=== PATIENT | female | born 1950 | race Caucasian/White ===

== ENCOUNTER 2016-07-01 14:57 | Emergency (ER) | payer OTHER ==
[2016-07-01 15:04] VITALS: BMI 23.3
--- NOTE | 2016-07-01 15:20 | PDOC ---
[id number] is a 66 year old female, with a significant past medical history of coma and trach tube s/p right lower extremity bacterial infection with hospitalization for 4 months (2010), who presents to the emergency department with chest pain since . She states her pain is localized her mid- sternal region and is notably increased after eating. The patient reports the severity of her pain has decreased about 50% since the initial onset 4 days ago , however, the pain has been constant. The patient states she has not had to take any daily medications recently since her hospitalization in 2010. She denies shortness of breath, headache and dizziness. She denies fever, chills , nausea, vomit, diarrhea and constipation. She denies dysuria, frequency, urgency and hematuria. Allergies: NKDA Social history: denies toxic habits <Darby Wiley - Last Filed: 07/01/16 15:52> <Jarrett Mcgee - Last Filed: 08/11/16 09:48> - General Chief Complaint: Chest Pain Stated Complaint: CHEST PAIN Time Seen by Provider: 07/01/16 15:20 Past History <Darby Wiley - Last Filed: 07/01/16 15:52> - Psycho/Social/Smoking Cessation Hx Anxiety: No Suicidal Ideation: No Smoking History: Never smoked Have you smoked in the past 12 months: No Information on smoking cessation initiated: No Hx Alcohol Use: No Drug/Substance Use Hx: No Substance Use Type: None <Jarrett Mcgee - Last Filed: 08/11/16 09:48> - Past Medical History Allergies/Adverse Reactions: Allergies Allergy/AdvReac Type Severity Reaction Status Date / Time egg Allergy Verified 07/01/16 14:59 garlic Allergy Verified 07/01/16 14:59 Home Medications: Ambulatory Orders Ibuprofen 600 mg PO QID PRN #30 tablet 07/01/16 Ranitidine HCl [Zantac] 150 mg PO DAILY #20 tablet 07/01/16 Review of Systems - Review of Systems Able to Perform ROS?: Yes Comments:: 07/01/16 15:53 GENERAL/CONSTITUTIONAL: No fever or chills. No weakness. HEAD, EYES, EARS, NOSE AND THROAT: No change in vision. No ear pain or discharge. No sore throat. CARDIOVASCULAR: (+) chest pain. No shortness of breath. RESPIRATORY: No cough, wheezing, or hemoptysis. GASTROINTESTINAL: No nausea, vomiting, diarrhea or constipation. GENITOURINARY: No dysuria, frequency, or change in urination. MUSCULOSKELETAL: No joint or muscle swelling or pain. No neck or back pain. SKIN: No rash NEUROLOGIC: No headache, vertigo, loss of consciousness, or change in strength/ sensation. ENDOCRINE: No increased thirst. No abnormal weight change. HEMATOLOGIC/LYMPHATIC: No anemia, easy bleeding, or history of blood clots. ALLERGIC/IMMUNOLOGIC: No hives or skin allergy. <Darby Wiley - Last Filed: 07/01/16 15:52> *Physical Exam - Vital Signs Last Vital Signs Temp Pulse Resp BP Pulse Ox 97 F L 102 H 20 130/69 98 07/01/16 15:00 07/01/16 15:00 07/01/16 15:00 07/01/16 15:00 07/01/16 15:00 - Physical Exam Comments: 07/01/16 15:53 GENERAL: Awake, alert, and fully oriented, in no acute distress HEAD: No signs of trauma EYES: PERRLA, EOMI, sclera anicteric, conjunctiva clear ENT: Auricles normal inspection, hearing grossly normal, nares patent, oropharynx clear without exudates. Moist mucosa NECK: Normal ROM, supple, no lymphadenopathy, JVD, or masses LUNGS: Breath sounds equal, clear to auscultation bilaterally. No wheezes, and no crackles HEART: Regular rate and rhythm, normal S1 and S2, no murmurs, rubs or gallops ABDOMEN: Soft, nontender, normoactive bowel sounds. No guarding, no rebound. No masses EXTREMITIES: (+) RLE has skin graft well healed, wearing brace. Normal range of motion, no edema. No clubbing or cyanosis. No cords, erythema, or tenderness NEUROLOGICAL: Cranial nerves II through XII grossly intact. Normal speech, normal gait SKIN: Warm, Dry, normal turgor, no rashes or lesions noted. <Darby Wiley - Last Filed: 07/01/16 15:52> - Vital Signs Last Vital Signs Temp Pulse Resp BP Pulse Ox 97 F L 102 H 20 130/69 98 07/01/16 15:00 07/01/16 15:00 07/01/16 15:00 07/01/16 15:00 07/01/16 15:00 <Jarrett Mcgee - Last Filed: 08/11/16 09:48> ED Treatment Course - LABORATORY CBC & Chemistry Diagram: 07/01/16 15:48 07/01/16 15:48 <Jarrett Mcgee - Last Filed: 08/11/16 09:48> *DC/Admit/Observation/Transfer - Attestations Scribe Attestion: 07/01/16 15:54 Documentation prepared by Darby Wiley, acting as medical instructor for Jarrett Mcgee MD <Darby Wiley - Last Filed: 07/01/16 15:52> - Attestations Physician Attestion: 07/01/16 15:20 I, Dr. Jarrett Mcgee, attest that this document has been prepared under my direction and personally reviewed by me in its entirety. I further attest, that it accurately reflects all work, treatment, procedures and medical decision -making performed by me. <Jarrett Mcgee - Last Filed: 08/11/16 09:48> Diagnosis at time of Disposition: Pleuritic chest pain - Discharge Dispostion Disposition: HOME - Prescriptions Prescriptions: Ibuprofen 600 mg PO QID PRN #30 tablet PRN Reason: Pain Ranitidine HCl [Zantac] 150 mg PO DAILY #20 tablet - Patient Instructions Additional Instructions: The symptoms described are suggestive of a chest wall type of pain; if your symptoms worsen or change, please return immediately to the ED. You have very low risk for cardiovascular disease and the symptoms are not suggestive of a cardiac origin. Please follow up with the PMD within the next 48 hours. A sustainability engineer (stomach doctor) evaluation as an out patient would be appropriate follow up as well.
[2016-07-01] MEDS ORDERED: LIDOCAINE VISCOUS 2% ORAL/TOP 20 ML UNIT-DOSE CUP MM ONE (15:34)
[2016-07-01] MEDS ORDERED: diphenhydrAMINE HCL 12.5 MG/5 ML UNIT-DOSE CUPS PO ONE (15:34)
[2016-07-01] MEDS ORDERED: MAG HYDROX/AL HYDROX/SIMETH 30 ML UNIT-DOSE CUP PO ONE (15:34)
[2016-07-01] MEDS ORDERED: MAG HYDROX/AL HYDROX/SIMETH 30 ML UNIT-DOSE CUP ONE (15:52)
[2016-07-01] MEDS ORDERED: diphenhydrAMINE HCL 12.5 MG/5 ML BULK BOTTLE ONE (15:52)
[2016-07-01 16:09] LABS: BASOPHIL 0.4 % (0-2.0); EOSINOPHIL 1.7 % (0-4.5); MCH 28.7 pg (25.7-33.7); MCHC 32.7 g/dl (32.0-36.0); MEAN CELL VOLUME 87.8 fl (80-96); MEAN PLT VOLUME 8.9 fl (7.5-11.1); NEUTROPHILS 83.9 % (42.8-82.8); PLATELET COUNT 261 K/MM3 (134-434); RDW 13.5 % (11.6-15.6); WHITE BLOOD COUNT 9.7 K/mm3 (4.0-10.0)
[2016-07-01 16:29] LABS: INR 1.06 (0.82-1.09); PROTHROMBIN TIME (PATIENT) 11.7 SEC (9.98-11.88)
[2016-07-01 16:30] LABS: ALBUMIN 3.8 g/dl (3.4-5.0); ANION GAP 12 (8-16); BILIRUBIN,TOTAL 0.4 mg/dL (0.2-1.0); CALCIUM 9.8 mg/dL (8.5-10.1); CO2 26 mmol/L (21-32); CREATININE 0.9 mg/dL (0.55-1.02); GLUCOSE,RANDOM 96 mg/dL (74-106); SGOT/AST 18 U/L (15-37); SGPT/ALT 22 U/L (12-78); TOT PROT 8.5 g/dl (6.4-8.2)
[2016-07-01 16:33] LABS: ALK PHOS 103 U/L (45-117); TROPONIN I < 0.02 ng/ml (0.00-0.05)
[2016-07-01] MEDS ORDERED: PANTOPRAZOLE 40 MG TABLET (FP) PO ONE (17:38)
[2016-07-01] MEDS ORDERED: FAMOTIDINE 20 MG/50 ML IVPB 50 ML IVPB ONE ×2 (17:38→17:52)
[2016-07-01] MEDS ORDERED: PANTOPRAZOLE 40 MG TABLET (FP) ONE (17:51)
--- NOTE | 2016-07-01 21:50 | PDOC ---
*Physical Exam - Vital Signs Last Vital Signs Temp Pulse Resp BP Pulse Ox 97 F L 97 H 20 117/78 97 07/01/16 15:00 07/01/16 18:55 07/01/16 21:20 07/01/16 18:55 07/01/16 21:20 ED Treatment Course - LABORATORY CBC & Chemistry Diagram: 07/01/16 15:48 07/01/16 15:48 - ADDITIONAL ORDERS Additional order review: Laboratory Results 07/01/16 07/01/16 15:48 15:48 INR 1.06 Sodium 140 Potassium 4.1 Chloride 102 Carbon Dioxide 26 Anion Gap 12 BUN 19 H Creatinine 0.9 Creat Clearance w eGFR > 60 Random Glucose 96 Calcium 9.8 Total Bilirubin 0.4 AST 18 ALT 22 Alkaline Phosphatase 103 Creatine Kinase 95 Troponin I < 0.02 Total Protein 8.5 H Albumin 3.8 Lipase 186 07/01/16 15:48 RBC 4.73 MCV 87.8 MCHC 32.7 RDW 13.5 MPV 8.9 Neutrophils % 83.9 H Lymphocytes % 7.2 L Monocytes % 6.8 Eosinophils % 1.7 Basophils % 0.4 - Medications Given in the ED: ED Medications Discontinued Medications Generic Name Dose Route Start Last Admin Trade Name Freq PRN Reason Stop Dose Admin Al Hydroxide/Mg Hydroxide 30 ml 07/01/16 15:34 07/01/16 16:10 Mylanta Oral Suspension - PO 07/01/16 15:35 30 ml ONCE ONE Administration Diphenhydramine HCl 25 mg 07/01/16 15:34 07/01/16 16:10 Benadryl Oral Solution - PO 07/01/16 15:35 25 mg ONCE ONE Administration Famotidine/Sodium Chloride 50 mls @ 100 mls/hr 07/01/16 17:38 07/01/16 18:01 Pepcid 20 Mg Premixed Ivpb - IVPB 07/01/16 18:07 100 mls/hr ONCE ONE Administration Lidocaine HCl 60 ml 07/01/16 15:34 07/01/16 16:10 Xylocaine 2% Viscous Oral - MM 07/01/16 15:35 60 ml ONCE ONE Administration Pantoprazole Sodium 40 mg 07/01/16 17:38 07/01/16 18:01 Protonix - PO 07/01/16 17:39 40 mg ONCE ONE Administration Medical Decision Making - Medical Decision Making 07/01/16 21:50 The patient is received on sign out; she has no current symptoms; reports no cardiac risk factors aside from borderline hyperlipidemia. She describes a pleuritic type chest pain and reports no risk factors for DVT/PE and has a negative evaluation overall. She is encouraged to follow up with the PMD within the next 48 hours and return if there is any change otherwise; She is given analgesia and antacid zantac for possible involvement of GERD as well. *DC/Admit/Observation/Transfer Diagnosis at time of Disposition: Pleuritic chest pain - Discharge Dispostion Disposition: HOME Condition at time of disposition: Good Admit: No Decision to Admit order Date/Time: 07/01/16 21:44 - Prescriptions Prescriptions: Ibuprofen 600 mg PO QID PRN #30 tablet PRN Reason: Pain Ranitidine HCl [Zantac] 150 mg PO DAILY #20 tablet - Patient Instructions Additional Instructions: The symptoms described are suggestive of a chest wall type of pain; if your symptoms worsen or change, please return immediately to the ED. You have very low risk for cardiovascular disease and the symptoms are not suggestive of a cardiac origin. Please follow up with the PMD within the next 48 hours. A high density talc coater operator (stomach doctor) evaluation as an out patient would be appropriate follow up as well.
--- NOTE | 2016-07-01 21:55 | PDOC ---
History of Present Illness - General Chief Complaint: Chest Pain Stated Complaint: CHEST PAIN Time Seen by Provider: 07/01/16 15:20 Past History - Past Medical History Allergies/Adverse Reactions: Allergies Allergy/AdvReac Type Severity Reaction Status Date / Time egg Allergy Verified 07/01/16 14:59 garlic Allergy Verified 07/01/16 14:59 Home Medications: Ambulatory Orders Ibuprofen 600 mg PO QID PRN #30 tablet 07/01/16 Ranitidine HCl [Zantac] 150 mg PO DAILY #20 tablet 07/01/16 - Psycho/Social/Smoking Cessation Hx Anxiety: No Suicidal Ideation: No Smoking History: Never smoked Have you smoked in the past 12 months: No Information on smoking cessation initiated: No Hx Alcohol Use: No Drug/Substance Use Hx: No Substance Use Type: None *Physical Exam - Vital Signs Last Vital Signs Temp Pulse Resp BP Pulse Ox 97 F L 97 H 20 117/78 97 07/01/16 15:00 07/01/16 18:55 07/01/16 21:20 07/01/16 18:55 07/01/16 21:20 ED Treatment Course - LABORATORY CBC & Chemistry Diagram: 07/01/16 15:48 07/01/16 15:48 - ADDITIONAL ORDERS Additional order review: Laboratory Results 07/01/16 07/01/16 15:48 15:48 INR 1.06 Sodium 140 Potassium 4.1 Chloride 102 Carbon Dioxide 26 Anion Gap 12 BUN 19 H Creatinine 0.9 Creat Clearance w eGFR > 60 Random Glucose 96 Calcium 9.8 Total Bilirubin 0.4 AST 18 ALT 22 Alkaline Phosphatase 103 Creatine Kinase 95 Troponin I < 0.02 Total Protein 8.5 H Albumin 3.8 Lipase 186 07/01/16 15:48 RBC 4.73 MCV 87.8 MCHC 32.7 RDW 13.5 MPV 8.9 Neutrophils % 83.9 H Lymphocytes % 7.2 L Monocytes % 6.8 Eosinophils % 1.7 Basophils % 0.4 - Medications Given in the ED: ED Medications Discontinued Medications Generic Name Dose Route Start Last Admin Trade Name Freq PRN Reason Stop Dose Admin Al Hydroxide/Mg Hydroxide 30 ml 07/01/16 15:34 07/01/16 16:10 Mylanta Oral Suspension - PO 07/01/16 15:35 30 ml ONCE ONE Administration Diphenhydramine HCl 25 mg 07/01/16 15:34 07/01/16 16:10 Benadryl Oral Solution - PO 07/01/16 15:35 25 mg ONCE ONE Administration Famotidine/Sodium Chloride 50 mls @ 100 mls/hr 07/01/16 17:38 07/01/16 18:01 Pepcid 20 Mg Premixed Ivpb - IVPB 07/01/16 18:07 100 mls/hr ONCE ONE Administration Lidocaine HCl 60 ml 07/01/16 15:34 07/01/16 16:10 Xylocaine 2% Viscous Oral - MM 07/01/16 15:35 60 ml ONCE ONE Administration Pantoprazole Sodium 40 mg 07/01/16 17:38 07/01/16 18:01 Protonix - PO 07/01/16 17:39 40 mg ONCE ONE Administration *DC/Admit/Observation/Transfer Diagnosis at time of Disposition: Pleuritic chest pain - Prescriptions Prescriptions: Ibuprofen 600 mg PO QID PRN #30 tablet PRN Reason: Pain Ranitidine HCl [Zantac] 150 mg PO DAILY #20 tablet - Patient Instructions Additional Instructions: The symptoms described are suggestive of a chest wall type of pain; if your symptoms worsen or change, please return immediately to the ED. You have very low risk for cardiovascular disease and the symptoms are not suggestive of a cardiac origin. Please follow up with the PMD within the next 48 hours. A charge operator (stomach doctor) evaluation as an out patient would be appropriate follow up as well.
[2016-07-01 21:58] VITALS: BP 124/80; PULSE 90; TEMP 98.2
--- NOTE | 2016-07-02 13:34 | EKG ---
Test Reason : Blood Pressure : / mmHG Vent. Rate : 093 BPM Atrial Rate : 093 BPM P-R Int : 132 ms QRS Dur : 076 ms QT Int : 324 ms P-R-T Axes : 050 037 066 degrees QTc Int : 402 ms NORMAL SINUS RHYTHM NORMAL ECG NO PREVIOUS ECGS AVAILABLE Confirmed by DAVIS MEJÍA MD ([id number]) on 07/02/2016 1:33:42 PM Referred By: Confirmed By:DAVIS MEJÍA MD
== END 2016-07-01 21:58 | disposition home or self-care (01) ==
LOC: JER 14:57
PROC: 3E033GC Introduction of Other Therapeutic Substance into Peripheral Vein, Percutaneous Approach (ICD-10-PCS; principal; 2016-07-01)
DX: R07.89 Other chest pain (principal)
CPT/HCPCS: 36415; 71010-TC; 71275-TC; 80053; 82550; 83690; 84484; 85025; 85610; 93005; 93010; 96365; 99285-25

== ENCOUNTER 2017-05-04 11:52 | Emergency (ER) | payer OTHER ==
[2017-05-04 12:08] VITALS: BMI 25.0
[2017-05-04] MEDS ORDERED: ALBUTEROL SO4 2.5/IPRATROPIUM 0.5 INH SOL 3 ML VIAL.NEB. NEB ONE (12:32)
--- NOTE | 2017-05-04 12:32 | PDOC ---
History of Present Illness - General Chief Complaint: Pain Stated Complaint: ABD PAIN Time Seen by Provider: 05/04/17 12:08 - History of Present Illness Initial Comments: 66 year old previous healthy female presenting with vesicular rash across her back and stomach. States that she had pain that started in the same location across her back and stomach 5 days prior which evolved into a group of blisters just 2 days prior. States that the rash is burning, non-pruritic, and some of the blisters have popped already. She does have an 8 month old daughter at home and some grandchildren. She has had chicken pox in the past. Denies any fevers, chills, nausea, vomiting, diarrhea, constipation, visual symptoms, chest pain, urinary symptoms, auditory symptoms, ear pain, or other sick signs. 05/04/17 13:13 Past History - Past Medical History Allergies/Adverse Reactions: Allergies Allergy/AdvReac Type Severity Reaction Status Date / Time egg Allergy Verified 05/04/17 12:07 garlic Allergy Verified 05/04/17 12:07 Home Medications: Ambulatory Orders Valacyclovir HCl [Valtrex -] 1,000 mg PO TID 7 Days #20 tablet 05/04/17 COPD: No - Suicide/Smoking/Psychosocial Hx Smoking History: Never smoked Have you smoked in the past 12 months: No Hx Alcohol Use: No Drug/Substance Use Hx: No Substance Use Type: None Review of Systems - Review of Systems Constitutional: No: Chills, Diaphoresis, Fever, Loss of Appetite HEENTM: No: Eye Pain, Blurred Vision Respiratory: No: Cough, Orthopnea, Shortness of Breath, Stridor, Wheezing Cardiac (ROS): No: Chest Pain, Edema, Irregular Heart Rate, Chest Tightness ABD/GI: No: Abdominal Distended, Constipated, Diarrhea, Nausea, Vomiting : No: Burning, Dysuria, Discharge Musculoskeletal: No: Back Pain Integumentary: Yes: Erythema, Lesions, Rash, Other (Painful rash) Neurological: No: Headache, Numbness, Paresthesia, Tingling, Tremors *Physical Exam - Vital Signs Last Vital Signs Temp Pulse Resp BP Pulse Ox 98 F 93 H 18 113/82 113 H 05/04/17 12:05/04/17 12:05/04/17 12:05/04/17 12:05/04/17 12:01 - Physical Exam General Appearance: Yes: Nourished, Appropriately Dressed. No: Apparent Distress HEENT: positive: EOMI, REUBEN, Normal ENT Inspection, TMs Normal, Pharynx Normal. negative: Normal Voice Neck: positive: Trachea midline, Normal Thyroid, Supple. negative: Tender, Rigid Respiratory/Chest: positive: Lungs Clear, Normal Breath Sounds. negative: Chest Tender, Respiratory Distress, Accessory Muscle Use Cardiovascular: positive: Regular Rhythm, Regular Rate Gastrointestinal/Abdominal: positive: Normal Bowel Sounds, Flat, Soft. negative : Tender Musculoskeletal: positive: Normal Inspection, CVA Tenderness Extremity: positive: Normal Capillary Refill, Normal Inspection, Normal Range of Motion. negative: Tender Integumentary: positive: Dry, Warm, Erythema, Rash (T 8 distribution vesicular rash in the T7 disribution with some light crusting. Does not appear to be superinfected.). negative: Normal Color Medical Decision Making - Medical Decision Making Previously healthy 66 year old female with T7 distribution rash concerning for shingles. Will give one dose of Valacyclovir here and send home with prescription for one week treatment and home percocet x 5. Gave instructions to avoid contact with daughter until rash is resolved and anyone who has not had the chicken pox. 05/04/17 13:18 *DC/Admit/Observation/Transfer Diagnosis at time of Disposition: Varicella zoster - Discharge Dispostion Disposition: HOME Condition at time of disposition: Improved Admit: No - Prescriptions Prescriptions: Valacyclovir HCl [Valtrex -] 1,000 mg PO TID 7 Days #20 tablet - Referrals - Patient Instructions Printed Discharge Instructions: DI for Shingles Additional Instructions: You have herpes zoster/ varicella zoster. This is a reactivation of the shingles virus. Please take your medication as directed. You can take some of the pain medication maximum 2 times per day as needed for the pain. Your rash and pain will get better with the antiviral therapy. Please stay away from your daughter until your rash is completely gone. Please stay away from anyone who has not had the chicken pox virus which may be your grandchildren. Please return to the ED if your symptoms do not get better with the medication or your pain does not improve with the pain medications. Print Language: CAP[place] - Post Discharge Activity
[2017-05-04] MEDS ORDERED: valACYclovir HCL 1000 MG TABLET PO ONE (13:07)
--- NOTE | 2017-05-04 13:31 | PDOC ---
Attending Attestation - Resident Resident Name: Kishan Cornejo - ED Attending Attestation I have performed the following: I have examined & evaluated the patient, The case was reviewed & discussed with the resident, I agree w/resident's findings & plan, Exceptions are as noted - HPI HPI: 05/04/17 13:27 66 F with no PMH presents to ER with 5 days of rash and pain. Pt states that she began to feel hypersensitivity and pain in the skin under her R breast 5 days ago. Then, 2 days ago she started to notice a redness in the skin. This progressed to several vesicles and severe pain. Pt denies F/C. Denies rash anywhere else in her body. States that she had chicken pox as a child. - Physicial Exam PE: 05/04/17 13:30 "GENERAL: Awake, alert, and fully oriented, in no acute distress HEAD: No signs of trauma EYES: PERRLA, EOMI, sclera anicteric, conjunctiva clear ENT: Auricles normal inspection, hearing grossly normal, nares patent, oropharynx clear without exudates. Moist mucosa NECK: Nontender, no stepoffs, Normal ROM, supple, no lymphadenopathy, JVD, or masses LUNGS: Breath sounds equal, clear to auscultation bilaterally. No wheezes, and no crackles HEART: Regular rate and rhythm, normal S1 and S2, no murmurs, rubs or gallops ABDOMEN: Soft, nontender, normoactive bowel sounds. No guarding, no rebound. No masses EXTREMITIES: Normal range of motion, no edema. No clubbing or cyanosis. No cords, erythema, or tenderness NEUROLOGICAL: Cranial nerves II through XII intact. 5/5 strength and sensation in all extremities, Normal speech, normal gait SKIN: erythematous rash with crusting vesicles in T5 distribution, no purulent drainage, no fluctuance - Medical Decision Making 05/04/17 13:31 66 F with shingles rash. No evidence of disseminated zoster or superinfection. No systemic symptoms. - Valacyclovir - Isolation precautions I discussed the physical exam findings, ancillary test results and final diagnoses with the patient. I answered all of the patient's questions. The patient was satisfied with the care received and felt comfortable with the discharge plan and treatment plan. The patient agrees to follow up with the primary care physician within 24-72 hours.
[2017-05-04 14:08] VITALS: BP 116/73; PULSE 89; TEMP 98.3
== END 2017-05-04 14:08 | disposition home or self-care (01) ==
LOC: JER 11:52
DX: B01.9 Varicella without complication (principal)
CPT/HCPCS: 99282-25

== ENCOUNTER 2017-08-15 20:02 | Emergency (ER) | payer OTHER ==
[2017-08-15] MEDS ORDERED: SODIUM CHLORIDE 1,000 ML IV STA (20:33)
--- NOTE | 2017-08-15 20:33 | PDOC ---
Rapid Medical Evaluation Time Seen by Provider: 08/15/17 20:29 Medical Evaluation: Allergies Allergy/AdvReac Type Severity Reaction Status Date / Time egg Allergy Verified 05/04/17 12:07 garlic Allergy Verified 05/04/17 12:07 08/15/17 20:29 I have performed a brief-in person evaluation of this patient. The patient presents with a chief complaint of: Left sided back pains since 1300 -1900hrs with Nausea/chills/weak H/O renal colic (last episode x8 years ago) H/O Low B/P and Tachycardia Pertinent physical exam findings: Left flank pain on percussion I have ordered the following: CBC/diff/cmp/IV done by me in triage The patient will proceed to the ED for further evaluation. Discharge Disposition - Diagnosis Kidney stones, Hydronephrosis - Discharge Dispostion Disposition: HOME Condition at time of disposition: Stable - Prescriptions Prescriptions: Cefuroxime Axetil [Ceftin -] 500 mg PO Q12H #20 tablet - Referrals Referrals: Althea Patterson MD [Staff Physician] - - Patient Instructions Printed Discharge Instructions: Kidney Stones -- Adult - Post Discharge Activity
[2017-08-15 20:34] VITALS: BP 119/63; PULSE 108; TEMP 98; BMI 25.7
[2017-08-15 20:46] LABS: BASO % 0.2 % (0-2.0); EOS % 1.7 % (0-4.5); HEMATOCRIT 42.2 % (32.4-45.2); HEMOGLOBIN 14.4 GM/dL (10.7-15.3); LYMPH % 2.6 % (8-40); MCH 30.9 pg (25.7-33.7); MCHC 34.1 g/dl (32.0-36.0); MEAN CELL VOLUME 90.4 fl (80-96); MEAN PLT VOLUME 8.6 fl (7.5-11.1); MONO % 1.3 % (3.8-10.2); NEUT % 94.2 % (42.8-82.8); PLATELET COUNT 172 K/MM3 (134-434); RBC 4.67 M/mm3 (3.60-5.2); RDW 13.5 % (11.6-15.6)
[2017-08-15 20:59] LABS: URINE APPEARANCE SLCLOUDY; URINE BILIRUBIN NEGATIVE (<2.0 mg/dL); URINE COLOR YELLOW; URINE GLUCOSE (UA) NEGATIVE (NEGATIVE); URINE KETONE NEGATIVE (NEGATIVE); URINE NITRITE NEGATIVE (NEGATIVE); URINE PROTEIN NEGATIVE (NEGATIVE); URINE UROBILINOGEN NEGATIVE mg/dL (0.2-1.0)
[2017-08-15 21:00] LABS: URINE LEUK ESTERASE 3+ (NEGATIVE)
[2017-08-15 21:11] LABS: ALK PHOS 102 U/L (45-117); ANION GAP 13 (8-16); BILIRUBIN,TOTAL 0.9 mg/dL (0.2-1.0); BLOOD UREA NITROGEN 16 mg/dL (7-18); CALCIUM 9.9 mg/dL (8.5-10.1); CHLORIDE 106 mmol/L (98-107); CO2 23 mmol/L (21-32); CREATININE 1.1 mg/dL (0.55-1.02); GLUCOSE,RANDOM 92 mg/dL (74-106); SGPT/ALT 29 U/L (12-78); SODIUM 142 mmol/L (136-145); TOT PROT 7.7 g/dl (6.4-8.2)
[2017-08-15 21:14] LABS: POTASSIUM 4.7 mmol/L (3.5-5.1)
[2017-08-15 21:15] LABS: SGOT/AST 38 U/L (15-37)
[2017-08-15 21:34] LABS: EPI CELLS RARE /HPF (FEW); URINE BACTERIA FEW /hpf (NONE SEEN); URINE MUCUS RARE
[2017-08-15] MEDS ORDERED: CEFTRIAXONE 1,000 MG in DEXTROSE 5%-WATER - 50 ML IVPB ONE (23:17)
[2017-08-16] MEDS ORDERED: CEFTRIAXONE 1 GM/50 ML BAG ONE (00:01)
--- NOTE | 2017-08-16 01:37 | PDOC ---
History of Present Illness - General History Source: Patient Exam Limitations: No Limitations - History of Present Illness Initial Comments: 08/16/17 03:28 Patient is a 67 year old female with a significant past medical history of kidney stones who presents to the ED with complaints of left sided flank pain that began earlier today. Patient reports being prescribed antibiotics due to UTI 2 weeks ago, stating she recently just finished the cycle. She reports experiencing gradually increases left flank pain, prompting her to come into the ED for further evaluation. Denies chest pain, Sob. Denies nausea, vomiting. Denies fevers, chills. Denies contact with sick individuals, out of state travelling. Denies trauma to affected area. Denies any other symptoms. Allergies: Egg, Garlic Social History: Lives with . No smoking. No alcohol. No illicit drugs. Surgical History: None PMD: none <Coy Carr - Last Filed: 08/16/17 03:28> <Fidelia Ryan - Last Filed: 08/16/17 06:49> - General Chief Complaint: Pain, Acute Stated Complaint: pain and weakness Time Seen by Provider: 08/15/17 20:29 Past History <Coy Carr - Last Filed: 08/16/17 03:28> - Past Medical History COPD: No - Suicide/Smoking/Psychosocial Hx Smoking History: Never smoked Have you smoked in the past 12 months: No Information on smoking cessation initiated: No Hx Alcohol Use: No Drug/Substance Use Hx: No Substance Use Type: None <Fidelia Ryan - Last Filed: 08/16/17 06:49> - Past Medical History Allergies/Adverse Reactions: Allergies Allergy/AdvReac Type Severity Reaction Status Date / Time egg Allergy Verified 08/16/17 01:33 garlic Allergy Verified 08/16/17 01:33 Home Medications: Ambulatory Orders Valacyclovir HCl [Valtrex -] 1,000 mg PO TID 7 Days #20 tablet 05/04/17 Cefuroxime Axetil [Ceftin -] 500 mg PO Q12H #20 tablet 08/16/17 Review of Systems - Review of Systems Able to Perform ROS?: Yes Comments:: 08/16/17 03:28 GENERAL/CONSTITUTIONAL: No fever or chills. No weakness. HEAD, EYES, EARS, NOSE AND THROAT: No change in vision. No ear pain or discharge. No sore throat. CARDIOVASCULAR: No chest pain or shortness of breath. RESPIRATORY: No cough, wheezing, or hemoptysis. GASTROINTESTINAL: No nausea, vomiting, diarrhea or constipation. GENITOURINARY: No dysuria, frequency, or change in urination. MUSCULOSKELETAL: +Left flank pain. No joint or muscle swelling or pain. No neck pain. SKIN: No rash NEUROLOGIC: No headache, vertigo, loss of consciousness, or change in strength/ sensation. ENDOCRINE: No increased thirst. No abnormal weight change. HEMATOLOGIC/LYMPHATIC: No anemia, easy bleeding, or history of blood clots. ALLERGIC/IMMUNOLOGIC: No hives or skin allergy. <Coy Carr - Last Filed: 08/16/17 03:28> *Physical Exam - Vital Signs Last Vital Signs Temp Pulse Resp BP Pulse Ox 98.0 F 108 H 16 119/63 100 08/15/17 20:32 08/15/17 20:32 08/15/17 20:32 08/15/17 20:32 08/15/17 20:32 - Physical Exam Comments: 08/16/17 03:28 GENERAL: Awake, alert, and fully oriented, in no acute distress HEAD: No signs of trauma EYES: PERRLA, EOMI, sclera anicteric, conjunctiva clear ENT: Auricles normal inspection, hearing grossly normal, nares patent, oropharynx clear without exudates. Moist mucosa NECK: Normal ROM, supple, no lymphadenopathy, JVD, or masses LUNGS: Breath sounds equal, clear to auscultation bilaterally. No wheezes, and no crackles HEART: Regular rate and rhythm, normal S1 and S2, no murmurs, rubs or gallops ABDOMEN: Soft, nontender, normoactive bowel sounds. No guarding, no rebound. No masses MUSCULOSKELETAL: +Minimal left flank pain to percussion. EXTREMITIES: +right prosthetic leg. Normal range of motion, no edema. No clubbing or cyanosis. No cords, erythema, or tenderness NEUROLOGICAL: Cranial nerves II through XII grossly intact. Normal speech, normal gait SKIN: Warm, Dry, normal turgor, no rashes or lesions noted. <Coy Carr - Last Filed: 08/16/17 03:28> - Vital Signs Last Vital Signs Temp Pulse Resp BP Pulse Ox 98.0 F 108 H 16 119/63 100 08/15/17 20:32 08/15/17 20:32 08/15/17 20:32 08/15/17 20:32 08/15/17 20:32 <Fidelia Ryan - Last Filed: 08/16/17 06:49> ED Treatment Course - LABORATORY CBC & Chemistry Diagram: 08/15/17 20:40 08/15/17 20:40 - ADDITIONAL ORDERS Additional order review: Laboratory Results 08/15/17 08/15/17 20:48 20:40 Sodium 142 Potassium 4.7 Chloride 106 Carbon Dioxide 23 Anion Gap 13 BUN 16 Creatinine 1.1 H Creat Clearance w eGFR 49.69 Random Glucose 92 Calcium 9.9 Total Bilirubin 0.9 D AST 38 H ALT 29 Alkaline Phosphatase 102 Total Protein 7.7 Albumin 4.0 Urine Color Yellow Urine Appearance Slcloudy Urine pH 5.0 Ur Specific [place] 1.015 Urine Protein Negative Urine Glucose (UA) Negative Urine Ketones Negative Urine Blood 2+ H Urine Nitrite Negative Urine Bilirubin Negative Urine Urobilinogen Negative Ur Leukocyte Esterase 3+ H Urine WBC (Auto) 166 Urine RBC (Auto) 38 Ur Epithelial Cells Rare Urine Bacteria Few Urine Mucus Rare 08/15/17 20:40 RBC 4.67 MCV 90.4 MCHC 34.1 RDW 13.5 MPV 8.6 Neutrophils % 94.2 H Lymphocytes % 2.6 L D Monocytes % 1.3 L D Eosinophils % 1.7 Basophils % 0.2 - Medications Given in the ED: ED Medications Discontinued Medications Generic Name Dose Route Start Last Admin Trade Name Freq PRN Reason Stop Dose Admin Sodium Chloride 1,000 mls @ 1,000 mls/hr 08/15/17 20:33 08/15/17 21:28 Normal Saline - IV 08/15/17 21:32 1,000 mls/hr ASDIR STA Administration Ceftriaxone Sodium 1,000 mg/ 50 mls @ 100 mls/hr 08/15/17 23:17 08/16/17 00: 39 Dextrose IVPB 08/15/17 23:46 100 mls/hr ONCE ONE Administration <Coy Carr - Last Filed: 08/16/17 03:28> - LABORATORY CBC & Chemistry Diagram: 08/15/17 20:40 08/15/17 20:40 - ADDITIONAL ORDERS Additional order review: Laboratory Results 08/15/17 08/15/17 20:48 20:40 Sodium 142 Potassium 4.7 Chloride 106 Carbon Dioxide 23 Anion Gap 13 BUN 16 Creatinine 1.1 H Creat Clearance w eGFR 49.69 Random Glucose 92 Calcium 9.9 Total Bilirubin 0.9 D AST 38 H ALT 29 Alkaline Phosphatase 102 Total Protein 7.7 Albumin 4.0 Urine Color Yellow Urine Appearance Slcloudy Urine pH 5.0 Ur Specific [place] 1.015 Urine Protein Negative Urine Glucose (UA) Negative Urine Ketones Negative Urine Blood 2+ H Urine Nitrite Negative Urine Bilirubin Negative Urine Urobilinogen Negative Ur Leukocyte Esterase 3+ H Urine WBC (Auto) 166 Urine RBC (Auto) 38 Ur Epithelial Cells Rare Urine Bacteria Few Urine Mucus Rare 08/15/17 20:40 RBC 4.67 MCV 90.4 MCHC 34.1 RDW 13.5 MPV 8.6 Neutrophils % 94.2 H Lymphocytes % 2.6 L D Monocytes % 1.3 L D Eosinophils % 1.7 Basophils % 0.2 - RADIOLOGY Radiology Studies Ordered: Category Date Time Status SPIRAL- RENAL-STONE CT [CT] Stat CT Scan 08/15/17 23:42 Taken - Medications Given in the ED: ED Medications Discontinued Medications Generic Name Dose Route Start Last Admin Trade Name Freq PRN Reason Stop Dose Admin Sodium Chloride 1,000 mls @ 1,000 mls/hr 08/15/17 20:33 08/15/17 21:28 Normal Saline - IV 08/15/17 21:32 1,000 mls/hr ASDIR STA Administration Ceftriaxone Sodium 1,000 mg/ 50 mls @ 100 mls/hr 08/15/17 23:17 08/16/17 00: 39 Dextrose IVPB 08/15/17 23:46 100 mls/hr ONCE ONE Administration <Fidelia Ryan - Last Filed: 08/16/17 06:49> Medical Decision Making - Medical Decision Making 08/16/17 01:37 Patient Name: TIESHA ADAIR THIS IS A PRELIMINARY REPORT FROM [facility] DATE OF SERVICE: 2017-08-15 23:57:18 IMAGES: [id number] EXAM: CT ABDOMEN AND PELVIS WITHOUT CONTRAST TECHNIQUE: One of more of the following dose reduction techniques were use: Automated exposure control adjustment of the mA and/or kV according to the patient size, use of iterative reconstructive technique. Axial images from the lung bases through the symphysis pubis with multi-planar reconstructions from the axial data set. Oral contrast: No. HISTORY: Rule out stones. COMPARISON: None. FINDINGS: Lung bases show some minimal patchy basilar atelectasis. Coronary vascular calcifications are present. A second small hiatal hernia is present. Left kidney shows moderate left hydronephrosis and hydroureter to the pelvis where there are 2 adjacent ureteral stones with larger proximal stone measuring 0.4 cm and smaller distal stone measuring 0.3 cm. Left kidney contains a nonobstructive 0.4 cm inferior calyceal stone. No right renal stones or right hydronephrosis. No bladder calculi. Liver, gallbladder, spleen, pancreas and adrenal glands are unremarkable. Evaluation for parenchymal organ pathology is limited on non contrast imaging. Aorta is normal in caliber with no significant atherosclerosis. No lymphadenopathy based on size criteria. Prior surgical change to the left upper quadrant abdominal wall with small tethering of the stomach to the anterior abdominal wall near the surgical site is present suggesting prior PEG tube placement. Small gas-filled duodenal diverticulum is present. Bowel appears unremarkable. Appendix is negative. No free intraperitoneal fluid or gas. Spine shows some scattered degenerative changes. Uterus contains small calcified fibroids along the fundus. Bladder appears unremarkable. IMPRESSION: 1. Moderate left hydronephrosis and hydroureter to the distal left ureteral stones just prior to the left ureterovesicular junction. Nonobstructive inferior left calyceal stone. 2. Tethering of the anterior stomach to the left upper quadrant anterior abdominal wall in area of postoperative change suggesting prior PEG tube placement. Correlate clinically. THIS DOCUMENT HAS BEEN ELECTRONICALLY SIGNED 08/16/17 06:47 Pt comes with repeat UTI. SHe has a hx of stones. Hansn't had a scan in years. Today CT renal scan shows nonobstructing stones and hydronephrosis. Pt has a UTI and she will be treated with ceftin to go home with a dose of ceftriaxone was given parenterally in the ER and pt will be asked to follow with nephrology/urology. <Fidelia Ryan - Last Filed: 08/16/17 06:49> *DC/Admit/Observation/Transfer - Attestations Scribe Attestion: 08/16/17 03:28 Documentation prepared by Coy Carr, acting as general medical practitioner for Fidelia Ryan MD/DO. <Coy Carr - Last Filed: 08/16/17 03:28> - Discharge Dispostion Decision to Admit order: No <Fidelia Ryan - Last Filed: 08/16/17 06:49> Diagnosis at time of Disposition: Kidney stones, Hydronephrosis - Discharge Dispostion Disposition: HOME Condition at time of disposition: Stable - Prescriptions Prescriptions: Cefuroxime Axetil [Ceftin -] 500 mg PO Q12H #20 tablet - Referrals Referrals: Althea Patterson MD [Staff Physician] - - Patient Instructions Printed Discharge Instructions: Kidney Stones -- Adult
== END 2017-08-16 01:48 | disposition home or self-care (01) ==
LOC: JER 20:02
PROC: 3E0337Z Introduction of Electrolytic and Water Balance Substance into Peripheral Vein, Percutaneous Approach (ICD-10-PCS; principal; 2017-08-15)
PROC: 3E03329 Introduction of Other Anti-infective into Peripheral Vein, Percutaneous Approach (ICD-10-PCS; 2017-08-15)
DX: N13.2 Hydronephrosis with renal and ureteral calculous obstruction (principal); Z87.442 Personal history of urinary calculi; Z87.440 Personal history of urinary (tract) infections
CPT/HCPCS: 36415; 74176; 80053; 81003; 81015; 85025; 96361; 96374; 99281-25; J7030

== ENCOUNTER 2022-09-06 09:30 | Inpatient (IN) | payer OTHER ==
[2022-09-06] MEDS ORDERED: SODIUM CHLORIDE 2,082 ML IV ONE (09:56)
[2022-09-06] MEDS ORDERED: PIPERACILLIN/TAZOB 4.5 GM 4.5 GM in DEXTROSE 5%-WATER 100 ML IVPB ONE (09:57)
[2022-09-06] MEDS ORDERED: CLINDAMYCIN 600MG PREMIX IVPB 600 MG/50 ML BAG IVPB ONE (09:57)
[2022-09-06] MEDS ORDERED: VANCOMYCIN 1 GM in D5W (PRE-DOCKED) 1,000 MG/250 ML (RESTRICTED TO ID ONLY IVPB ONE (09:57)
[2022-09-06] MEDS ORDERED: VANCOMYCIN/WATER FOR INJ (PEG) 1,000 MG/200 ML BAG IVPB ONE (10:42)
[2022-09-06] MEDS ORDERED: PIPERACILLIN/TAZOB 4.5 GM 4.5 GM/100 ML BAG IVPB ONE (10:42)
[2022-09-06 10:43] LABS: VENOUS BASE EXCESS -1.9 mmol/L (-2-2); VENOUS O2 SATURATION 36.9 % (70-80); VENOUS PCO2 40.8 mmHg (38-52); VENOUS PH 7.373 (7.310-7.410)
[2022-09-06 10:49] LABS: HEMATOCRIT 39.9 % (32.4-45.2); HEMOGLOBIN 13.3 GM/dL (10.7-15.3); MCH 28.7 pg (25.7-33.7); MCHC 33.3 g/dl (32.0-36.0); MEAN CELL VOLUME 86.3 fl (80-96); MEAN PLT VOLUME 8.3 fl (7.5-11.1); PLATELET COUNT 286 10^3/uL (134-434); RBC 4.62 M/mm3 (3.60-5.2); RDW 13.8 % (11.6-15.6)
[2022-09-06 11:00] LABS: INR 1.27 (0.83-1.09); PROTHROMBIN TIME (PATIENT) 14.7 SEC (9.7-13.0)
[2022-09-06 11:03] LABS: ACTIVATED PTT 31.9 SECONDS (25.2-36.5)
[2022-09-06 11:07] LABS: CHLORIDE 105 mmol/L (98-107); POTASSIUM 4.3 mmol/L (3.5-5.1); SODIUM 137 mmol/L (136-145)
[2022-09-06 11:09] LABS: ANION GAP 8 MMOL/L (8-16); CALCIUM 9.4 mg/dL (8.5-10.1); CO2 24 mmol/L (21-32); GLUCOSE,RANDOM 119 mg/dL (74-106)
[2022-09-06 11:10] LABS: ALBUMIN 3.4 g/dl (3.4-5.0); BLOOD UREA NITROGEN 34.3 mg/dL (7-18)
[2022-09-06 11:13] LABS: CREATININE 1.3 mg/dL (0.55-1.3); SGOT/AST 21 U/L (15-37); SGPT/ALT 21 U/L (13-61)
[2022-09-06 11:14] LABS: BILIRUBIN,TOTAL 0.8 mg/dL (0.2-1); TOT PROT 8.1 g/dl (6.4-8.2)
[2022-09-06 11:15] LABS: ALK PHOS 72 U/L (45-117)
[2022-09-06 11:34] LABS: LACTIC ACID 2.6 mmol/L (0.4-2.0)
[2022-09-06 11:35] LABS: ANISOCYTOSIS 0; HELMET CELLS 0; HOWELL-JOLLY BODIES 0; MACROCYTOSIS 0; OVALOCYTE 0; ROULEAU 0; SICKELED CELLS 0; TARGET CELLS 0; TEAR DROP CELLS 0; TOXIC GRANULATION 0
[2022-09-06] MEDS ORDERED: ONDANSETRON 4 MG/2 ML VIAL IVPUSH ONE (14:01)
[2022-09-06] MEDS ORDERED: ACETAMINOPHEN 1000 MG/100 ML BAG IVPB ONE (14:02)
[2022-09-06] MEDS ORDERED: ONDANSETRON 4 MG/2 ML VIAL ONE (14:10)
[2022-09-06] MEDS ORDERED: ACETAMINOPHEN INJECTION 100 ML IVPB ONE (14:10)
[2022-09-06] MEDS ORDERED: ACETAMINOPHEN 325 MG TABLET (FP) PO PRN (15:59)
[2022-09-06] MEDS ORDERED: D5-1/2NS+10 MEQ KCL - 10 MEQ/1,000 ML INFUS.BAG IV SCH (16:00)
[2022-09-06] MEDS ORDERED: PANTOPRAZOLE 40 MG TABLET PO ONE (16:11)
[2022-09-06] MEDS ORDERED: ENOXAPARIN NA (PORCINE) 40 MG/0.4 ML DISP.SYRIN SQ ONE (16:12)
[2022-09-06] MEDS: PANTOPRAZOLE 40 MG TABLET PO SCH (16:28)
[2022-09-06] MEDS: ENOXAPARIN NA (PORCINE) 40 MG/0.4 ML DISP.SYRIN SQ SCH (16:28)
[2022-09-06 18:43] LABS: EPI CELLS 17 /uL (0-25.1); HYALINE CASTS 118 /uL (0-3.1); PH,URINE 5.5 (5.0-8.0); URINE APPEARANCE Clear; URINE BACTERIA 8178 /uL (0-1359); URINE BILIRUBIN Negative (NEGATIVE); URINE COLOR Yellow; URINE GLUCOSE (UA) Negative (NEGATIVE); URINE KETONE Negative (NEGATIVE); URINE LEUK ESTERASE Small (NEGATIVE); URINE NITRITE Negative (NEGATIVE); URINE PROTEIN 30 (NEGATIVE); URINE RBC 9 /uL (0-23.9); URINE WBC 342 /uL (0-25.8)
[2022-09-06 19:06] LABS: POTASSIUM 3.8 mmol/L (3.5-5.1)
[2022-09-06 19:08] LABS: BLOOD UREA NITROGEN 34.4 mg/dL (7-18)
[2022-09-06 19:11] LABS: CREATININE 1.2 mg/dL (0.55-1.3)
[2022-09-06 19:25] LABS: CALCIUM 7.6 mg/dL (8.5-10.1)
[2022-09-06] MEDS ORDERED: SODIUM CHLORIDE 1,000 ML IV STA (20:31)
[2022-09-06] MEDS ORDERED: ACETAMINOPHEN 325 MG TABLET (FP) ONE (21:01)
[2022-09-06] MEDS ORDERED: SODIUM CHLORIDE SCH (23:30)
[2022-09-06] MEDS ORDERED: CLINDAMYCIN SCH (23:30)
[2022-09-06] MEDS ORDERED: VANCOMYCIN 1 GM PREMIX - 1 GM/200 ML BAG IVPB SCH (23:45)
[2022-09-06] MEDS ORDERED: LACTATED RINGERS SOLUTION 1,000 ML/1,000 ML INFUS.BAG IV SCH (23:45)
[2022-09-07] MEDS: CLINDAMYCIN 600MG PREMIX IVPB 600 MG/50 ML BAG IVPB SCH ×2 (02:44→10:18)
[2022-09-07] MEDS: PIPERACILLIN/TAZOB 4.5 GM 4.5 GM in DEXTROSE 5%-WATER 100 ML IVPB SCH ×3 (03:03→18:45)
[2022-09-07] MEDS: ACETAMINOPHEN 1000 MG/100 ML BAG IVPB PRN ×3 (03:04→18:07)
[2022-09-07 07:25] LABS: HEMATOCRIT 32.1 % (32.4-45.2); HEMOGLOBIN 10.7 GM/dL (10.7-15.3); MCHC 33.2 g/dl (32.0-36.0); MEAN CELL VOLUME 87.2 fl (80-96); MEAN PLT VOLUME 9.5 fl (7.5-11.1); PLATELET COUNT 212 10^3/uL (134-434); RBC 3.68 M/mm3 (3.60-5.2); RDW 13.8 % (11.6-15.6); WHITE BLOOD COUNT 16.4 K/mm3 (4.0-10.0)
[2022-09-07 08:05] LABS: CALCIUM 7.5 mg/dL (8.5-10.1); MAGNESIUM 1.6 mg/dL (1.8-2.4)
[2022-09-07 08:06] LABS: BLOOD UREA NITROGEN 29.2 mg/dL (7-18)
[2022-09-07 08:09] LABS: PHOSPHOROUS 2.4 mg/dL (2.5-4.9)
[2022-09-07 08:16] LABS: ALBUMIN 2.2 g/dl (3.4-5.0)
[2022-09-07] MEDS ORDERED: MAGNESIUM 1GM/D5W - 1 GM/100 ML IVPB IVPB ONE (08:38)
[2022-09-07] MEDS: MUPIROCIN 2% TOPICAL OINTMENT FOR DECOLONIZATION NS SCH ×2 (09:25→21:49)
[2022-09-07] MEDS: PANTOPRAZOLE 40 MG TABLET PO SCH (09:26)
[2022-09-07] MEDS: ENOXAPARIN NA (PORCINE) 40 MG/0.4 ML DISP.SYRIN SQ SCH (09:26)
[2022-09-07 09:42] LABS: ANISOCYTOSIS 0; MACROCYTOSIS 0
[2022-09-07] MEDS ORDERED: VANCOMYCIN/WATER FOR INJ (PEG) 1 GM/200 ML BAG IVPB SCH (10:00)
[2022-09-07] MEDS: LACTATED RINGERS SOLUTION 1,000 ML/1,000 ML INFUS.BAG IV SCH ×2 (14:55→22:57)
[2022-09-07] MEDS: CLINDAMYCIN 900 MG PREMIX IVPB 900 MG/50 ML BAG IVPB SCH (17:36)
[2022-09-07] MEDS: CEFTRIAXONE 2 GM in DEXTROSE 5%-WATER 100 ML IVPB SCH (18:52)
[2022-09-07] MEDS: NAPROXEN 500 MG TABLET PO SCH (21:48)
[2022-09-07] MEDS: CHLORHEXIDINE GLUCONATE 4% CLEANSER FOR DECOLONIZATION TP SCH (21:48)
[2022-09-08] MEDS: CLINDAMYCIN 900 MG PREMIX IVPB 900 MG/50 ML BAG IVPB SCH ×3 (01:54→18:04)
[2022-09-08] MEDS: CEFTRIAXONE 2 GM in DEXTROSE 5%-WATER 100 ML IVPB SCH ×2 (05:49→17:13)
[2022-09-08 07:22] LABS: HEMATOCRIT 29.7 % (32.4-45.2); HEMOGLOBIN 10.1 GM/dL (10.7-15.3); MCH 29.2 pg (25.7-33.7); MEAN PLT VOLUME 9.5 fl (7.5-11.1); PLATELET COUNT 213 10^3/uL (134-434); RBC 3.45 M/mm3 (3.60-5.2); RDW 13.9 % (11.6-15.6); WHITE BLOOD COUNT 18.6 K/mm3 (4.0-10.0)
[2022-09-08 07:55] LABS: POTASSIUM 3.5 mmol/L (3.5-5.1)
[2022-09-08 07:59] LABS: BLOOD UREA NITROGEN 23.4 mg/dL (7-18); CALCIUM 7.4 mg/dL (8.5-10.1)
[2022-09-08 08:03] LABS: CREATININE 1.1 mg/dL (0.55-1.3)
[2022-09-08 09:07] LABS: ERYTHROCYTE SEDIMENTATION RATE 103 mm/hr (0-30)
[2022-09-08] MEDS: PANTOPRAZOLE 40 MG TABLET PO SCH (10:06)
[2022-09-08] MEDS: ENOXAPARIN NA (PORCINE) 40 MG/0.4 ML DISP.SYRIN SQ SCH (10:06)
[2022-09-08] MEDS: NAPROXEN 500 MG TABLET PO SCH ×2 (10:06→21:55)
[2022-09-08] MEDS: MUPIROCIN 2% TOPICAL OINTMENT FOR DECOLONIZATION NS SCH ×2 (10:09→21:56)
[2022-09-08] MEDS: KCL 10 MEQ IVPB 10 MEQ/100 ML INFUS.BAG IVPB SCH ×3 (10:15→15:14)
[2022-09-08 10:17] LABS: ANISOCYTOSIS 0; MACROCYTOSIS 0
[2022-09-08] MEDS: LACTATED RINGERS SOLUTION 1,000 ML/1,000 ML INFUS.BAG IV SCH (12:08)
[2022-09-08] MEDS ORDERED: IRON SUCROSE INJECTION 300 MG in SODIUM CHLORIDE 235 ML IVPB ONE (17:00)
[2022-09-08] MEDS: CHLORHEXIDINE GLUCONATE 4% CLEANSER FOR DECOLONIZATION TP SCH (21:55)
[2022-09-09] MEDS: CLINDAMYCIN 900 MG PREMIX IVPB 900 MG/50 ML BAG IVPB SCH ×3 (01:31→18:26)
[2022-09-09] MEDS: CEFTRIAXONE 2 GM in DEXTROSE 5%-WATER 100 ML IVPB SCH ×2 (05:37→17:22)
[2022-09-09 07:39] LABS: CALCIUM 7.7 mg/dL (8.5-10.1)
[2022-09-09 07:40] LABS: BLOOD UREA NITROGEN 18.9 mg/dL (7-18)
[2022-09-09 07:41] LABS: POTASSIUM 3.5 mmol/L (3.5-5.1)
[2022-09-09 07:43] LABS: CREATININE 0.9 mg/dL (0.55-1.3)
[2022-09-09 07:55] LABS: HEMATOCRIT 30.3 % (32.4-45.2); HEMOGLOBIN 10.4 GM/dL (10.7-15.3); MCH 29.1 pg (25.7-33.7); MCHC 34.3 g/dl (32.0-36.0); MEAN CELL VOLUME 84.9 fl (80-96); MEAN PLT VOLUME 9.7 fl (7.5-11.1); PLATELET COUNT 250 10^3/uL (134-434); RBC 3.57 M/mm3 (3.60-5.2); RDW 13.9 % (11.6-15.6); WHITE BLOOD COUNT 18.5 K/mm3 (4.0-10.0)
[2022-09-09 09:34] LABS: ANISOCYTOSIS 0; HELMET CELLS 0; HOWELL-JOLLY BODIES 0; MACROCYTOSIS 0; OVALOCYTE 0; ROULEAU 0; SICKELED CELLS 0; TARGET CELLS 0; TEAR DROP CELLS 0; TOXIC GRANULATION 0
[2022-09-09] MEDS: ENOXAPARIN NA (PORCINE) 40 MG/0.4 ML DISP.SYRIN SQ SCH (09:44)
[2022-09-09] MEDS: PANTOPRAZOLE 40 MG TABLET PO SCH (09:44)
[2022-09-09] MEDS: MUPIROCIN 2% TOPICAL OINTMENT FOR DECOLONIZATION NS SCH ×2 (09:44→22:06)
[2022-09-09] MEDS: NAPROXEN 500 MG TABLET PO SCH ×2 (09:44→22:05)
[2022-09-09] MEDS: KCL 10 MEQ IVPB 10 MEQ/100 ML INFUS.BAG IVPB SCH ×3 (10:51→13:44)
[2022-09-09] MEDS ORDERED: DEXTROSE 50%-WATER 25 GM/50 ML DISP.SYRIN ONE (14:33)
[2022-09-09] MEDS: LACTATED RINGERS SOLUTION 1,000 ML/1,000 ML INFUS.BAG IV SCH (22:06)
[2022-09-09] MEDS: CHLORHEXIDINE GLUCONATE 4% CLEANSER FOR DECOLONIZATION TP SCH (22:06)
[2022-09-10] MEDS: CLINDAMYCIN 900 MG PREMIX IVPB 900 MG/50 ML BAG IVPB SCH ×3 (02:46→17:27)
[2022-09-10] MEDS: CEFTRIAXONE 2 GM in DEXTROSE 5%-WATER 100 ML IVPB SCH ×2 (05:48→17:27)
[2022-09-10 07:06] LABS: HEMATOCRIT 30.5 % (32.4-45.2); HEMOGLOBIN 10.1 GM/dL (10.7-15.3); MCH 28.3 pg (25.7-33.7); MEAN CELL VOLUME 85.8 fl (80-96); MEAN PLT VOLUME 9.3 fl (7.5-11.1); PLATELET COUNT 262 10^3/uL (134-434); RBC 3.55 M/mm3 (3.60-5.2); RDW 14.1 % (11.6-15.6); WHITE BLOOD COUNT 16.2 K/mm3 (4.0-10.0)
[2022-09-10 07:29] LABS: POTASSIUM 3.6 mmol/L (3.5-5.1)
[2022-09-10 07:34] LABS: CREATININE 0.8 mg/dL (0.55-1.3)
[2022-09-10] MEDS: KCL 10 MEQ IVPB 10 MEQ/100 ML INFUS.BAG IVPB SCH ×3 (08:49→11:52)
[2022-09-10 09:51] LABS: ANISOCYTOSIS 0; MACROCYTOSIS 0
[2022-09-10] MEDS: ENOXAPARIN NA (PORCINE) 40 MG/0.4 ML DISP.SYRIN SQ SCH (09:53)
[2022-09-10] MEDS: PANTOPRAZOLE 40 MG TABLET PO SCH (09:54)
[2022-09-10] MEDS: NAPROXEN 500 MG TABLET PO SCH ×2 (09:54→21:55)
[2022-09-10] MEDS: COLLAGENASE CLOSTRIDIUM HIST. 30 GRAMS TUBE TP SCH (09:54)
[2022-09-10 15:06] VITALS: BMI 27.8
[2022-09-10] MEDS: LACTATED RINGERS SOLUTION 1,000 ML/1,000 ML INFUS.BAG IV SCH (17:27)
[2022-09-11] MEDS: LACTATED RINGERS SOLUTION 1,000 ML/1,000 ML INFUS.BAG IV SCH (01:36)
[2022-09-11] MEDS: CLINDAMYCIN 900 MG PREMIX IVPB 900 MG/50 ML BAG IVPB SCH ×3 (01:37→17:38)
[2022-09-11] MEDS ORDERED: LACTATED RINGERS SOLUTION 1,000 ML/1,000 ML INFUS.BAG IV SCH ×2 (04:55→15:42)
[2022-09-11] MEDS: CEFTRIAXONE 2 GM in DEXTROSE 5%-WATER 100 ML IVPB SCH ×2 (05:01→18:24)
[2022-09-11] MEDS: COLLAGENASE CLOSTRIDIUM HIST. 30 GRAMS TUBE TP SCH (09:26)
[2022-09-11] MEDS: ENOXAPARIN NA (PORCINE) 40 MG/0.4 ML DISP.SYRIN SQ SCH (09:26)
[2022-09-11] MEDS: PANTOPRAZOLE 40 MG TABLET PO SCH (09:26)
[2022-09-12] MEDS: CLINDAMYCIN 900 MG PREMIX IVPB 900 MG/50 ML BAG IVPB SCH ×3 (03:07→18:22)
[2022-09-12] MEDS: CEFTRIAXONE 2 GM in DEXTROSE 5%-WATER 100 ML IVPB SCH ×2 (05:23→16:29)
[2022-09-12] MEDS: PANTOPRAZOLE 40 MG TABLET PO SCH (09:48)
[2022-09-12] MEDS: ENOXAPARIN NA (PORCINE) 40 MG/0.4 ML DISP.SYRIN SQ SCH (09:48)
[2022-09-12 10:42] LABS: HEMATOCRIT 34.6 % (32.4-45.2); HEMOGLOBIN 10.9 GM/dL (10.7-15.3); MCH 27.6 pg (25.7-33.7); MCHC 31.6 g/dl (32.0-36.0); MEAN CELL VOLUME 87.4 fl (80-96); MEAN PLT VOLUME 8.5 fl (7.5-11.1); PLATELET COUNT 345 10^3/uL (134-434); RBC 3.96 M/mm3 (3.60-5.2); RDW 14.4 % (11.6-15.6); WHITE BLOOD COUNT 12.5 K/mm3 (4.0-10.0)
[2022-09-12 10:55] LABS: CALCIUM 8.9 mg/dL (8.5-10.1)
[2022-09-12 10:56] LABS: BLOOD UREA NITROGEN 11.6 mg/dL (7-18)
[2022-09-12 11:00] LABS: CREATININE 0.8 mg/dL (0.55-1.3)
[2022-09-12 12:09] LABS: ANISOCYTOSIS 2+; MACROCYTOSIS 1+; OVALOCYTE 2+
[2022-09-12] MEDS: COLLAGENASE CLOSTRIDIUM HIST. 30 GRAMS TUBE TP SCH (12:56)
[2022-09-12] MEDS: LACTATED RINGERS SOLUTION 1,000 ML/1,000 ML INFUS.BAG IV SCH ×2 (13:35→14:59)
[2022-09-13] MEDS: CLINDAMYCIN 900 MG PREMIX IVPB 900 MG/50 ML BAG IVPB SCH ×3 (02:42→19:02)
[2022-09-13] MEDS: CEFTRIAXONE 2 GM in DEXTROSE 5%-WATER 100 ML IVPB SCH ×2 (04:35→19:02)
[2022-09-13] MEDS: LACTATED RINGERS SOLUTION 1,000 ML/1,000 ML INFUS.BAG IV SCH (06:35)
[2022-09-13] MEDS: ENOXAPARIN NA (PORCINE) 40 MG/0.4 ML DISP.SYRIN SQ SCH (11:08)
[2022-09-13] MEDS: PANTOPRAZOLE 40 MG TABLET PO SCH (11:08)
[2022-09-13] MEDS: COLLAGENASE CLOSTRIDIUM HIST. 30 GRAMS TUBE TP SCH (16:00)
[2022-09-13] MEDS: VANCOMYCIN/WATER FOR INJ (PEG) 1,000 MG/200 ML BAG IVPB SCH (19:48)
[2022-09-14] MEDS: LACTATED RINGERS SOLUTION 1,000 ML/1,000 ML INFUS.BAG IV SCH ×4 (02:26→20:50)
[2022-09-14 07:41] LABS: HEMOGLOBIN 9.8 GM/dL (10.7-15.3); MCH 29.2 pg (25.7-33.7); MCHC 33.8 g/dl (32.0-36.0); MEAN CELL VOLUME 86.3 fl (80-96); PLATELET COUNT 474 10^3/uL (134-434); RBC 3.36 M/mm3 (3.60-5.2); RDW 14.3 % (11.6-15.6); WHITE BLOOD COUNT 11.4 K/mm3 (4.0-10.0)
[2022-09-14 08:02] LABS: POTASSIUM 4.2 mmol/L (3.5-5.1)
[2022-09-14 08:03] LABS: BLOOD UREA NITROGEN 17.4 mg/dL (7-18); CALCIUM 8.7 mg/dL (8.5-10.1)
[2022-09-14 08:07] LABS: CREATININE 0.8 mg/dL (0.55-1.3)
[2022-09-14] MEDS: VANCOMYCIN/WATER FOR INJ (PEG) 1,000 MG/200 ML BAG IVPB SCH ×2 (08:39→20:24)
[2022-09-14] MEDS: PANTOPRAZOLE 40 MG TABLET PO SCH (09:30)
[2022-09-14] MEDS: ENOXAPARIN NA (PORCINE) 40 MG/0.4 ML DISP.SYRIN SQ SCH (09:30)
[2022-09-14] MEDS ORDERED: IRON SUCROSE INJECTION 300 MG in SODIUM CHLORIDE 235 ML IVPB ONE (10:00)
[2022-09-14 10:30] LABS: ANISOCYTOSIS 0; HELMET CELLS 0; HOWELL-JOLLY BODIES 0; MACROCYTOSIS 0; OVALOCYTE 0; ROULEAU 0; SICKELED CELLS 0; TARGET CELLS 0; TEAR DROP CELLS 0; TOXIC GRANULATION 0
[2022-09-14] MEDS: COLLAGENASE CLOSTRIDIUM HIST. 30 GRAMS TUBE TP SCH (18:18)
[2022-09-15] MEDS: LACTATED RINGERS SOLUTION 1,000 ML/1,000 ML INFUS.BAG IV SCH ×2 (09:00→16:29)
[2022-09-15 09:46] LABS: HEMATOCRIT 30.8 % (32.4-45.2); MCH 28.6 pg (25.7-33.7); MCHC 32.5 g/dl (32.0-36.0); MEAN CELL VOLUME 88.1 fl (80-96); MEAN PLT VOLUME 8.1 fl (7.5-11.1); PLATELET COUNT 594 10^3/uL (134-434); RDW 14.4 % (11.6-15.6); WHITE BLOOD COUNT 9.8 K/mm3 (4.0-10.0)
[2022-09-15 10:03] LABS: POTASSIUM 4.7 mmol/L (3.5-5.1)
[2022-09-15] MEDS: ENOXAPARIN NA (PORCINE) 40 MG/0.4 ML DISP.SYRIN SQ SCH (10:05)
[2022-09-15] MEDS: PANTOPRAZOLE 40 MG TABLET PO SCH (10:05)
[2022-09-15 10:06] LABS: BLOOD UREA NITROGEN 14.9 mg/dL (7-18); CALCIUM 8.7 mg/dL (8.5-10.1)
[2022-09-15 10:10] LABS: CREATININE 0.8 mg/dL (0.55-1.3)
[2022-09-15 10:48] LABS: ANISOCYTOSIS 0; HELMET CELLS 0; HOWELL-JOLLY BODIES 0; MACROCYTOSIS 0; OVALOCYTE 0; ROULEAU 0; SICKELED CELLS 0; TARGET CELLS 0; TEAR DROP CELLS 0; TOXIC GRANULATION 0
[2022-09-15 11:25] LABS: ERYTHROCYTE SEDIMENTATION RATE 106 mm/hr (0-30)
[2022-09-15] MEDS: VANCOMYCIN/WATER FOR INJ (PEG) 1,000 MG/200 ML BAG IVPB SCH ×3 (13:43→23:03)
[2022-09-15] MEDS: COLLAGENASE CLOSTRIDIUM HIST. 30 GRAMS TUBE TP SCH (14:22)
[2022-09-16] MEDS: VANCOMYCIN/WATER FOR INJ (PEG) 1,000 MG/200 ML BAG IVPB SCH (08:37)
[2022-09-16 08:54] LABS: BASO % 0.2 % (0-2.0); EOS % 2.2 % (0-4.5); HEMATOCRIT 28.9 % (32.4-45.2); HEMOGLOBIN 9.7 GM/dL (10.7-15.3); LYMPH % 8.4 % (8-40); MCH 29.1 pg (25.7-33.7); MCHC 33.5 g/dl (32.0-36.0); MEAN CELL VOLUME 86.9 fl (80-96); MEAN PLT VOLUME 7.4 fl (7.5-11.1); NEUT % 79.2 % (42.8-82.8); PLATELET COUNT 644 10^3/uL (134-434); RBC 3.33 M/mm3 (3.60-5.2); RDW 14.6 % (11.6-15.6); WHITE BLOOD COUNT 8.3 K/mm3 (4.0-10.0)
[2022-09-16 09:06] LABS: POTASSIUM 4.9 mmol/L (3.5-5.1)
[2022-09-16 09:11] LABS: BLOOD UREA NITROGEN 15.5 mg/dL (7-18)
[2022-09-16 09:14] LABS: CREATININE 0.9 mg/dL (0.55-1.3)
[2022-09-16] MEDS: ENOXAPARIN NA (PORCINE) 40 MG/0.4 ML DISP.SYRIN SQ SCH (09:53)
[2022-09-16] MEDS: PANTOPRAZOLE 40 MG TABLET PO SCH (09:53)
[2022-09-16] MEDS: LACTATED RINGERS SOLUTION 1,000 ML/1,000 ML INFUS.BAG IV SCH (10:23)
[2022-09-16 12:19] LABS: ERYTHROCYTE SEDIMENTATION RATE 109 mm/hr (0-30)
[2022-09-16] MEDS: COLLAGENASE CLOSTRIDIUM HIST. 30 GRAMS TUBE TP SCH (12:40)
[2022-09-17] MEDS: LACTATED RINGERS SOLUTION 1,000 ML/1,000 ML INFUS.BAG IV SCH ×2 (08:13→23:40)
[2022-09-17] MEDS: ENOXAPARIN NA (PORCINE) 40 MG/0.4 ML DISP.SYRIN SQ SCH (09:36)
[2022-09-17] MEDS: PANTOPRAZOLE 40 MG TABLET PO SCH (09:36)
[2022-09-17 09:59] LABS: BASO % 0.8 % (0-2.0); EOS % 2.2 % (0-4.5); HEMATOCRIT 29.4 % (32.4-45.2); HEMOGLOBIN 9.4 GM/dL (10.7-15.3); LYMPH % 10.1 % (8-40); MCH 28.7 pg (25.7-33.7); MCHC 31.9 g/dl (32.0-36.0); MEAN PLT VOLUME 8.5 fl (7.5-11.1); MONO % 10.4 % (3.8-10.2); NEUT % 76.5 % (42.8-82.8); PLATELET COUNT 631 10^3/uL (134-434); RBC 3.26 M/mm3 (3.60-5.2); RDW 14.7 % (11.6-15.6); WHITE BLOOD COUNT 6.4 K/mm3 (4.0-10.0)
[2022-09-17 10:13] LABS: BLOOD UREA NITROGEN 19.4 mg/dL (7-18); CALCIUM 8.9 mg/dL (8.5-10.1)
[2022-09-17 10:17] LABS: CREATININE 0.8 mg/dL (0.55-1.3)
[2022-09-17 10:39] LABS: ERYTHROCYTE SEDIMENTATION RATE 101 mm/hr (0-30)
[2022-09-17] MEDS: COLLAGENASE CLOSTRIDIUM HIST. 30 GRAMS TUBE TP SCH ×2 (14:43→17:03)
[2022-09-17] MEDS: VANCOMYCIN/WATER 1250 MG 1,250 MG/250 ML BAG IVPB SCH (14:43)
[2022-09-17] MEDS ORDERED: ACETAMINOPHEN 325 MG TABLET (FP) PO PRN (21:12)
[2022-09-18] MEDS ORDERED: IRON SUCROSE INJECTION 300 MG in SODIUM CHLORIDE 235 ML IVPB ONE (05:04)
[2022-09-18 09:51] LABS: BASO % 1.3 % (0-2.0); EOS % 2.6 % (0-4.5); HEMATOCRIT 28.3 % (32.4-45.2); HEMOGLOBIN 9.5 GM/dL (10.7-15.3); LYMPH % 11.5 % (8-40); MCH 29.5 pg (25.7-33.7); MCHC 33.6 g/dl (32.0-36.0); MEAN CELL VOLUME 87.7 fl (80-96); MEAN PLT VOLUME 7.8 fl (7.5-11.1); MONO % 9.6 % (3.8-10.2); PLATELET COUNT 641 10^3/uL (134-434); RBC 3.23 M/mm3 (3.60-5.2); RDW 14.5 % (11.6-15.6); WHITE BLOOD COUNT 5.2 K/mm3 (4.0-10.0)
[2022-09-18 09:59] LABS: POTASSIUM 4.9 mmol/L (3.5-5.1)
[2022-09-18 10:02] LABS: CALCIUM 9.2 mg/dL (8.5-10.1)
[2022-09-18 10:03] LABS: BLOOD UREA NITROGEN 19.9 mg/dL (7-18); ERYTHROCYTE SEDIMENTATION RATE 108 mm/hr (0-30)
[2022-09-18 10:06] LABS: CREATININE 0.9 mg/dL (0.55-1.3)
[2022-09-18] MEDS: ENOXAPARIN NA (PORCINE) 40 MG/0.4 ML DISP.SYRIN SQ SCH (10:08)
[2022-09-18] MEDS: PANTOPRAZOLE 40 MG TABLET PO SCH (10:08)
[2022-09-18] MEDS: LACTATED RINGERS SOLUTION 1,000 ML/1,000 ML INFUS.BAG IV SCH ×2 (10:10→14:43)
[2022-09-18] MEDS: VANCOMYCIN/WATER 1250 MG 1,250 MG/250 ML BAG IVPB SCH (14:42)
[2022-09-19] MEDS: LACTATED RINGERS SOLUTION 1,000 ML/1,000 ML INFUS.BAG IV SCH (08:57)
[2022-09-19 10:26] LABS: BASO % 0.7 % (0-2.0); EOS % 1.8 % (0-4.5); HEMATOCRIT 28.7 % (32.4-45.2); HEMOGLOBIN 9.3 GM/dL (10.7-15.3); LYMPH % 11.5 % (8-40); MCH 28.7 pg (25.7-33.7); MCHC 32.4 g/dl (32.0-36.0); MEAN CELL VOLUME 88.8 fl (80-96); MEAN PLT VOLUME 7.7 fl (7.5-11.1); MONO % 11.2 % (3.8-10.2); NEUT % 74.8 % (42.8-82.8); PLATELET COUNT 698 10^3/uL (134-434); RBC 3.23 M/mm3 (3.60-5.2); WHITE BLOOD COUNT 5.1 K/mm3 (4.0-10.0)
[2022-09-19 10:38] LABS: POTASSIUM 4.3 mmol/L (3.5-5.1)
[2022-09-19 10:41] LABS: CALCIUM 9.2 mg/dL (8.5-10.1)
[2022-09-19 10:42] LABS: BLOOD UREA NITROGEN 17.7 mg/dL (7-18)
[2022-09-19 10:45] LABS: CREATININE 0.9 mg/dL (0.55-1.3)
[2022-09-19] MEDS: PANTOPRAZOLE 40 MG TABLET PO SCH (10:54)
[2022-09-19] MEDS: ENOXAPARIN NA (PORCINE) 40 MG/0.4 ML DISP.SYRIN SQ SCH (10:55)
[2022-09-19 11:13] LABS: ERYTHROCYTE SEDIMENTATION RATE 108 mm/hr (0-30)
[2022-09-19] MEDS: VANCOMYCIN/WATER 1250 MG 1,250 MG/250 ML BAG IVPB SCH (13:19)
[2022-09-20] MEDS: LACTATED RINGERS SOLUTION 1,000 ML/1,000 ML INFUS.BAG IV SCH ×3 (07:44→23:15)
[2022-09-20] MEDS: ENOXAPARIN NA (PORCINE) 40 MG/0.4 ML DISP.SYRIN SQ SCH (09:26)
[2022-09-20] MEDS: PANTOPRAZOLE 40 MG TABLET PO SCH (09:26)
[2022-09-20 09:47] LABS: EOS % 1.8 % (0-4.5); HEMATOCRIT 28.6 % (32.4-45.2); HEMOGLOBIN 9.5 GM/dL (10.7-15.3); LYMPH % 13.4 % (8-40); MCH 29.4 pg (25.7-33.7); MCHC 33.2 g/dl (32.0-36.0); MEAN CELL VOLUME 88.6 fl (80-96); MEAN PLT VOLUME 7.8 fl (7.5-11.1); MONO % 12.9 % (3.8-10.2); NEUT % 70.9 % (42.8-82.8); PLATELET COUNT 718 10^3/uL (134-434); RBC 3.22 M/mm3 (3.60-5.2); RDW 14.8 % (11.6-15.6); WHITE BLOOD COUNT 4.8 K/mm3 (4.0-10.0)
[2022-09-20 10:06] LABS: POTASSIUM 4.8 mmol/L (3.5-5.1)
[2022-09-20 10:10] LABS: BLOOD UREA NITROGEN 15.6 mg/dL (7-18); CALCIUM 9.1 mg/dL (8.5-10.1)
[2022-09-20 10:14] LABS: CREATININE 0.8 mg/dL (0.55-1.3)
[2022-09-20 10:56] LABS: ERYTHROCYTE SEDIMENTATION RATE 105 mm/hr (0-30)
[2022-09-20] MEDS: VANCOMYCIN/WATER 1250 MG 1,250 MG/250 ML BAG IVPB SCH (14:31)
[2022-09-21 09:14] LABS: BASO % 1.3 % (0-2.0); EOS % 1.7 % (0-4.5); HEMATOCRIT 29.5 % (32.4-45.2); HEMOGLOBIN 9.6 GM/dL (10.7-15.3); LYMPH % 13.6 % (8-40); MCH 28.9 pg (25.7-33.7); MCHC 32.7 g/dl (32.0-36.0); MEAN CELL VOLUME 88.6 fl (80-96); MEAN PLT VOLUME 7.7 fl (7.5-11.1); MONO % 13.1 % (3.8-10.2); NEUT % 70.3 % (42.8-82.8); PLATELET COUNT 701 10^3/uL (134-434); RBC 3.33 M/mm3 (3.60-5.2); RDW 14.9 % (11.6-15.6); WHITE BLOOD COUNT 4.5 K/mm3 (4.0-10.0)
[2022-09-21 09:56] LABS: CALCIUM 9.4 mg/dL (8.5-10.1)
[2022-09-21] MEDS: ENOXAPARIN NA (PORCINE) 40 MG/0.4 ML DISP.SYRIN SQ SCH (09:59)
[2022-09-21] MEDS: PANTOPRAZOLE 40 MG TABLET PO SCH (09:59)
[2022-09-21 10:00] LABS: CREATININE 0.8 mg/dL (0.55-1.3)
[2022-09-21 11:13] LABS: ERYTHROCYTE SEDIMENTATION RATE 106 mm/hr (0-30)
[2022-09-21] MEDS: LACTATED RINGERS SOLUTION 1,000 ML/1,000 ML INFUS.BAG IV SCH (11:46)
[2022-09-21] MEDS: VANCOMYCIN PREMIX 1.5 GM 1,500 MG/300 ML BAG IVPB SCH (14:32)
[2022-09-22] MEDS: LACTATED RINGERS SOLUTION 1,000 ML/1,000 ML INFUS.BAG IV SCH (00:30)
[2022-09-22] MEDS: ENOXAPARIN NA (PORCINE) 40 MG/0.4 ML DISP.SYRIN SQ SCH (09:40)
[2022-09-22] MEDS: PANTOPRAZOLE 40 MG TABLET PO SCH (09:40)
[2022-09-22 09:43] LABS: BASO % 1.1 % (0-2.0); HEMATOCRIT 30.7 % (32.4-45.2); HEMOGLOBIN 9.9 GM/dL (10.7-15.3); LYMPH % 14.3 % (8-40); MCH 29.3 pg (25.7-33.7); MCHC 32.2 g/dl (32.0-36.0); MEAN CELL VOLUME 90.8 fl (80-96); MEAN PLT VOLUME 8.3 fl (7.5-11.1); MONO % 11.7 % (3.8-10.2); NEUT % 70.9 % (42.8-82.8); PLATELET COUNT 694 10^3/uL (134-434); RBC 3.39 M/mm3 (3.60-5.2); WHITE BLOOD COUNT 4.2 K/mm3 (4.0-10.0)
[2022-09-22 10:02] LABS: POTASSIUM 4.6 mmol/L (3.5-5.1)
[2022-09-22 10:05] LABS: CALCIUM 9.6 mg/dL (8.5-10.1)
[2022-09-22 10:06] LABS: BLOOD UREA NITROGEN 16.2 mg/dL (7-18)
[2022-09-22 10:09] LABS: CREATININE 0.8 mg/dL (0.55-1.3)
[2022-09-22 10:38] LABS: ERYTHROCYTE SEDIMENTATION RATE 102 mm/hr (0-30)
[2022-09-22] MEDS: VANCOMYCIN PREMIX 1.5 GM 1,500 MG/300 ML BAG IVPB SCH (13:16)
[2022-09-23] MEDS: PANTOPRAZOLE 40 MG TABLET PO SCH (10:25)
[2022-09-23] MEDS: ENOXAPARIN NA (PORCINE) 40 MG/0.4 ML DISP.SYRIN SQ SCH (10:25)
[2022-09-23 10:39] LABS: BASO % 1.2 % (0-2.0); HEMATOCRIT 32.3 % (32.4-45.2); HEMOGLOBIN 10.6 GM/dL (10.7-15.3); MCH 29.6 pg (25.7-33.7); MCHC 32.9 g/dl (32.0-36.0); MEAN CELL VOLUME 90.1 fl (80-96); MEAN PLT VOLUME 7.4 fl (7.5-11.1); MONO % 13.9 % (3.8-10.2); NEUT % 64.9 % (42.8-82.8); PLATELET COUNT 653 10^3/uL (134-434); RBC 3.58 M/mm3 (3.60-5.2); RDW 15.4 % (11.6-15.6); WHITE BLOOD COUNT 3.4 K/mm3 (4.0-10.0)
[2022-09-23 11:19] LABS: POTASSIUM 4.1 mmol/L (3.5-5.1)
[2022-09-23 11:22] LABS: CALCIUM 9.6 mg/dL (8.5-10.1)
[2022-09-23 11:23] LABS: BLOOD UREA NITROGEN 23.1 mg/dL (7-18)
[2022-09-23 11:26] LABS: CREATININE 1.1 mg/dL (0.55-1.3)
[2022-09-23 11:28] LABS: ERYTHROCYTE SEDIMENTATION RATE 100 mm/hr (0-30)
[2022-09-23] MEDS: VANCOMYCIN PREMIX 1.5 GM 1,500 MG/300 ML BAG IVPB SCH (13:05)
[2022-09-24 09:44] LABS: BASO % 1.6 % (0-2.0); EOS % 4.4 % (0-4.5); HEMATOCRIT 33.4 % (32.4-45.2); HEMOGLOBIN 10.7 GM/dL (10.7-15.3); LYMPH % 19.4 % (8-40); MCH 29.3 pg (25.7-33.7); MCHC 31.9 g/dl (32.0-36.0); MEAN CELL VOLUME 91.7 fl (80-96); MEAN PLT VOLUME 7.9 fl (7.5-11.1); NEUT % 62.6 % (42.8-82.8); PLATELET COUNT 612 10^3/uL (134-434); RBC 3.64 M/mm3 (3.60-5.2); RDW 15.1 % (11.6-15.6); WHITE BLOOD COUNT 2.8 K/mm3 (4.0-10.0)
[2022-09-24] MEDS: PANTOPRAZOLE 40 MG TABLET PO SCH (10:10)
[2022-09-24] MEDS: ENOXAPARIN NA (PORCINE) 40 MG/0.4 ML DISP.SYRIN SQ SCH (10:10)
[2022-09-24] MEDS: COLLAGENASE CLOSTRIDIUM HIST. 30 GRAMS TUBE TP SCH ×2 (10:13→19:47)
[2022-09-24 10:43] LABS: ERYTHROCYTE SEDIMENTATION RATE 98 mm/hr (0-30)
[2022-09-24] MEDS: VANCOMYCIN PREMIX 1.5 GM 1,500 MG/300 ML BAG IVPB SCH (13:46)
[2022-09-24] MEDS: AMOX TR/POT CLAV 875MG/125MG TABLETS (FP) PO SCH (17:37)
[2022-09-25] MEDS ORDERED: AMOX TR/POT CLAV 875MG/125MG TABLETS (FP) PO SCH (05:15)
[2022-09-25 06:16] VITALS: PULSE 114; RESP 18
[2022-09-25 08:17] VITALS: BP 115/68; TEMP 98.2
[2022-09-25] MEDS: AMOX TR/POT CLAV 875MG/125MG TABLETS (FP) PO SCH (08:36)
[2022-09-25] MEDS: ENOXAPARIN NA (PORCINE) 40 MG/0.4 ML DISP.SYRIN SQ SCH (09:25)
[2022-09-25] MEDS: PANTOPRAZOLE 40 MG TABLET PO SCH (09:26)
[2022-09-25] MEDS: COLLAGENASE CLOSTRIDIUM HIST. 30 GRAMS TUBE TP SCH (09:27)
[2022-09-25 11:18] LABS: BASO % 0.5 % (0-2.0); EOS % 3.3 % (0-4.5); HEMATOCRIT 36.7 % (32.4-45.2); HEMOGLOBIN 11.8 GM/dL (10.7-15.3); LYMPH % 10.3 % (8-40); MCH 29.5 pg (25.7-33.7); MCHC 32.2 g/dl (32.0-36.0); MEAN CELL VOLUME 91.6 fl (80-96); MEAN PLT VOLUME 8.3 fl (7.5-11.1); MONO % 5.4 % (3.8-10.2); NEUT % 80.5 % (42.8-82.8); PLATELET COUNT 583 10^3/uL (134-434); RBC 4.01 M/mm3 (3.60-5.2); WHITE BLOOD COUNT 2.7 K/mm3 (4.0-10.0)
== END 2022-09-25 12:11 | disposition home or self-care (01) | DRG 871 ==
LOC: JER 09:30 → JERBED 15:43 → JICU 22:28 → J5S 09-11 15:19
PROVIDERS: ADMIT Internal Medicine; ATTEND Internal Medicine
DX: A40.0 Sepsis due to streptococcus, group A (principal); R65.21 Severe sepsis with septic shock; L03.115 Cellulitis of right lower limb; E87.20 Acidosis, unspecified; N17.9 Acute kidney failure, unspecified; N39.0 Urinary tract infection, site not specified; I10 Essential (primary) hypertension; E78.5 Hyperlipidemia, unspecified; I73.9 Peripheral vascular disease, unspecified; R26.81 Unsteadiness on feet; M62.81 Muscle weakness (generalized); R60.0 Localized edema; E86.0 Dehydration; E83.51 Hypocalcemia; E83.39 Other disorders of phosphorus metabolism; E83.42 Hypomagnesemia; B96.1 Klebsiella pneumoniae [K. pneumoniae] as the cause of diseases classified elsewhere; I95.89 Other hypotension; E87.6 Hypokalemia; R50.9 Fever, unspecified; D50.9 Iron deficiency anemia, unspecified; S81.801A Unspecified open wound, right lower leg, initial encounter; L29.8 Other pruritus; L25.1 Unspecified contact dermatitis due to drugs in contact with skin; T36.1X5A Adverse effect of cephalosporins and other beta-lactam antibiotics, initial encounter; D70.2 Other drug-induced agranulocytosis; T36.8X5A Adverse effect of other systemic antibiotics, initial encounter; I72.4 Aneurysm of artery of lower extremity
CPT/HCPCS: 0241U-QW; 36415; 71045-TC-FY; 73701-TC-RT; 80048; 80053; 81003; 82308; 82550; 82553; 82728; 82803; 83540; 83550; 83605; 83735; 84100; 84484; 85025; 85379; 85610; 85651; 85730; 86140; 86850; 86900; 86901; 87040; 87070; 87077; 87086; 87186; 87205; 87324; 87449; 93005; 93010; 93306-TC; 94010; 97116-GP; 97162-GP; 99285-25; G0480; J1756; Q9967

== ENCOUNTER 2023-10-11 09:50 | Inpatient (IN) | payer OTHER ==
[2023-10-11 09:56] VITALS: BMI 28.7
[2023-10-11] MEDS ORDERED: CEFTRIAXONE 1 GM/50 ML BAG ONE (11:29)
[2023-10-11] MEDS ORDERED: ACETAMINOPHEN INJECTION 100 ML IVPB ONE (11:29)
[2023-10-11 11:36] LABS: BASO % 0.1 % (0-2.0); EOS % 0.6 % (0-4.5); HEMATOCRIT 35.8 % (32.4-45.2); HEMOGLOBIN 11.7 GM/dL (10.7-15.3); LYMPH % 5.3 % (8-40); MCH 27.9 pg (25.7-33.7); MCHC 32.8 g/dl (32.0-36.0); MEAN CELL VOLUME 85.1 fl (80-96); MONO % 6.5 % (3.8-10.2); NEUT % 87.5 % (42.8-82.8); PLATELET COUNT 358 10^3/uL (134-434); RBC 4.21 M/mm3 (3.60-5.2); RDW 14.5 % (11.6-15.6); WHITE BLOOD COUNT 8.9 K/mm3 (4.0-10.0)
[2023-10-11] MEDS: ACETAMINOPHEN 1000 MG/100 ML BAG IVPB ONE (11:37)
[2023-10-11 11:40] LABS: INR 1.1 (0.83-1.09); PROTHROMBIN TIME (PATIENT) 12.4 SEC (9.7-13.0)
[2023-10-11 11:43] LABS: ACTIVATED PTT 29.7 SECONDS (25.2-36.5)
[2023-10-11 12:00] LABS: POTASSIUM 4.2 mmol/L (3.5-5.1)
[2023-10-11 12:02] LABS: CALCIUM 9.4 mg/dL (8.5-10.1)
[2023-10-11 12:03] LABS: ALBUMIN 2.9 g/dl (3.4-5.0); BLOOD UREA NITROGEN 17.3 mg/dL (7-18)
[2023-10-11 12:06] LABS: BILIRUBIN,TOTAL 0.4 mg/dL (0.2-1); CREATININE 0.9 mg/dL (0.55-1.3); TOT PROT 7.7 g/dl (6.4-8.2)
[2023-10-11 12:47] LABS: ERYTHROCYTE SEDIMENTATION RATE 93 mm/hr (0-30)
[2023-10-11] MEDS ORDERED: ceFAZolin SODIUM 1 GM VIAL ONE (18:26)
[2023-10-11] MEDS: ACETAMINOPHEN 500 MG TABLET (FP) PO PRN (18:31)
[2023-10-11] MEDS ORDERED: ACETAMINOPHEN 500 MG TABLET (FP) ONE (18:31)
[2023-10-11] MEDS: CEFAZOLIN 1 GM in DEXTROSE 5%-WATER - 50 ML IVPB SCH (18:38)
[2023-10-11] MEDS: NAPROXEN 250 MG TABLET PO SCH (23:04)
[2023-10-12 08:32] LABS: BASO % 0.3 % (0-2.0); EOS % 1.6 % (0-4.5); HEMATOCRIT 35.4 % (32.4-45.2); HEMOGLOBIN 11.5 GM/dL (10.7-15.3); LYMPH % 6.8 % (8-40); MCH 27.9 pg (25.7-33.7); MCHC 32.6 g/dl (32.0-36.0); MEAN CELL VOLUME 85.5 fl (80-96); MEAN PLT VOLUME 7.9 fl (7.5-11.1); MONO % 4.9 % (3.8-10.2); NEUT % 86.4 % (42.8-82.8); PLATELET COUNT 338 10^3/uL (134-434); RBC 4.14 M/mm3 (3.60-5.2); RDW 14.5 % (11.6-15.6); WHITE BLOOD COUNT 6.9 K/mm3 (4.0-10.0)
[2023-10-12 08:51] LABS: POTASSIUM 4.1 mmol/L (3.5-5.1)
[2023-10-12 08:55] LABS: CALCIUM 8.6 mg/dL (8.5-10.1)
[2023-10-12 08:56] LABS: BLOOD UREA NITROGEN 18.1 mg/dL (7-18)
[2023-10-12 08:59] LABS: CREATININE 0.8 mg/dL (0.55-1.3)
[2023-10-12 15:17] VITALS: RESP 18
[2023-10-12] MEDS: CEFAZOLIN SODIUM 2 GM in DEXTROSE 5%-WATER 100 ML IVPB SCH (17:14)
[2023-10-12] MEDS ORDERED: CEFAZOLIN SODIUM 2 GM VIAL IVPB SCH (18:00)
[2023-10-13 09:57] LABS: HEMATOCRIT 37.2 % (32.4-45.2); HEMOGLOBIN 12.2 GM/dL (10.7-15.3); MCH 27.7 pg (25.7-33.7); MCHC 32.9 g/dl (32.0-36.0); MEAN CELL VOLUME 84.4 fl (80-96); MEAN PLT VOLUME 8.7 fl (7.5-11.1); PLATELET COUNT 403 10^3/uL (134-434); RBC 4.41 M/mm3 (3.60-5.2); RDW 14.4 % (11.6-15.6); WHITE BLOOD COUNT 6.4 K/mm3 (4.0-10.0)
[2023-10-13 10:33] LABS: POTASSIUM 4.5 mmol/L (3.5-5.1)
[2023-10-13 10:37] LABS: BLOOD UREA NITROGEN 23.2 mg/dL (7-18); CALCIUM 9.5 mg/dL (8.5-10.1)
[2023-10-13 10:40] LABS: CREATININE 0.9 mg/dL (0.55-1.3)
[2023-10-13 10:42] LABS: BILIRUBIN,TOTAL 0.3 mg/dL (0.2-1)
[2023-10-13 10:43] LABS: TOT PROT 7.7 g/dl (6.4-8.2)
[2023-10-13 10:44] LABS: ANISOCYTOSIS 0; MACROCYTOSIS 0
[2023-10-13] MEDS: POLYETHYLENE GLYCOL (HEALTHYLAX) 3350 17 GM PACKET PO SCH (22:04)
[2023-10-14] MEDS: ENOXAPARIN NA (PORCINE) 40 MG/0.4 ML DISP.SYRIN SQ SCH (09:46)
[2023-10-15 15:33] VITALS: BP 136/78; PULSE 101; TEMP 98.1
== END 2023-10-15 16:35 | disposition home or self-care (01) | DRG 603 ==
LOC: JER 09:50 → JERBED 16:02 → OBSVTOIN 16:14 → J5S 22:00
PROVIDERS: ADMIT Internal Medicine; ATTEND Internal Medicine
DX: L03.115 Cellulitis of right lower limb (principal); L97.919 Non-pressure chronic ulcer of unspecified part of right lower leg with unspecified severity; M79.89 Other specified soft tissue disorders; I73.9 Peripheral vascular disease, unspecified
CPT/HCPCS: 36415; 73590-TC-RT-FY; 73610-TC-RT-FY; 73630-TC-RT-FY; 73718-TC-RT; 80048; 80053; 83605; 85025; 85610; 85651; 85730; 86850; 86870; 86880; 86900; 86901; 86902; 87040; 93926-TC; 97116-GP; 99285-25; G0378; J0131

== ENCOUNTER 2024-01-07 09:41 | Inpatient (IN) | payer OTHER ==
[2024-01-07] MEDS ORDERED: CEFTRIAXONE 1 GM/50 ML BAG ONE (11:13)
[2024-01-07] MEDS ORDERED: ACETAMINOPHEN INJECTION 100 ML ONE ×2 (11:13→18:11)
[2024-01-07 11:14] LABS: BASO % 0.5 % (0-2.0); EOS % 2.6 % (0-4.5); HEMATOCRIT 38.6 % (32.4-45.2); HEMOGLOBIN 12.6 GM/dL (10.7-15.3); LYMPH % 5.7 % (8-40); MCH 28.7 pg (25.7-33.7); MCHC 32.7 g/dl (32.0-36.0); MEAN CELL VOLUME 87.7 fl (80-96); MONO % 8.4 % (3.8-10.2); NEUT % 82.8 % (42.8-82.8); PLATELET COUNT 281 10^3/uL (134-434); RDW 14.6 % (11.6-15.6); WHITE BLOOD COUNT 8.7 K/mm3 (4.0-10.0)
[2024-01-07] MEDS: ACETAMINOPHEN 1000 MG/100 ML BAG IVPB ONE (11:21)
[2024-01-07] MEDS: CEFAZOLIN 1 GM in DEXTROSE 5%-WATER - 50 ML IVPB ONE (11:22)
[2024-01-07 11:56] LABS: POTASSIUM 4.8 mmol/L (3.5-5.1)
[2024-01-07 11:58] LABS: BLOOD UREA NITROGEN 18.3 mg/dL (7-18); CALCIUM 9.1 mg/dL (8.5-10.1)
[2024-01-07 11:59] LABS: ALBUMIN 3.7 g/dl (3.4-5.0); MAGNESIUM 1.8 mg/dL (1.8-2.4)
[2024-01-07 12:00] LABS: ERYTHROCYTE SEDIMENTATION RATE 62 mm/hr (0-30)
[2024-01-07 12:01] LABS: URIC ACID 5.5 mg/dL (2.6-7.2)
[2024-01-07 12:03] LABS: BILIRUBIN,TOTAL 0.8 mg/dL (0.2-1)
[2024-01-07 12:04] LABS: TOT PROT 7.8 g/dl (6.4-8.2)
[2024-01-07] MEDS ORDERED: VANCOMYCIN 1 GRAM (PRE-DOCKED) 1,000 MG/250 ML BAG IVPB ONE (15:27)
[2024-01-07] MEDS: VANCOMYCIN 1,000 MG in DEXTROSE 5%-WATER - 250 ML IVPB SCH (15:47)
[2024-01-07] MEDS: VANCOMYCIN 1 GRAM (PRE-DOCKED) 1,000 MG/250 ML BAG IVPB SCH (15:49)
[2024-01-07] MEDS: ACETAMINOPHEN 1000 MG/100 ML BAG IVPB PRN (18:16)
[2024-01-08] MEDS ORDERED: ACETAMINOPHEN INJECTION 100 ML ONE ×2 (00:20→10:56)
[2024-01-08] MEDS ORDERED: VANCOMYCIN 1 GRAM (PRE-DOCKED) 1,000 MG/250 ML BAG IVPB ONE ×2 (03:46→15:24)
[2024-01-08 08:12] LABS: POTASSIUM 4.1 mmol/L (3.5-5.1)
[2024-01-08 08:15] LABS: HEMATOCRIT 39.2 % (32.4-45.2); MCH 29.1 pg (25.7-33.7); MCHC 33.3 g/dl (32.0-36.0); MEAN CELL VOLUME 87.4 fl (80-96); MEAN PLT VOLUME 8.4 fl (7.5-11.1); PLATELET COUNT 290 10^3/uL (134-434); RBC 4.48 M/mm3 (3.60-5.2); RDW 14.5 % (11.6-15.6); WHITE BLOOD COUNT 8.6 K/mm3 (4.0-10.0)
[2024-01-08 08:17] LABS: ALBUMIN 3.3 g/dl (3.4-5.0); BLOOD UREA NITROGEN 22.2 mg/dL (7-18); CALCIUM 9.4 mg/dL (8.5-10.1)
[2024-01-08 08:21] LABS: BILIRUBIN,TOTAL 0.8 mg/dL (0.2-1); CREATININE 0.9 mg/dL (0.55-1.3); TOT PROT 7.5 g/dl (6.4-8.2)
[2024-01-08] MEDS ORDERED: ENOXAPARIN NA (PORCINE) 40 MG/0.4 ML DISP.SYRIN SQ ONE (10:54)
[2024-01-08] MEDS: ENOXAPARIN NA (PORCINE) 40 MG/0.4 ML DISP.SYRIN SQ SCH (11:04)
[2024-01-08] MEDS: VANCOMYCIN/WATER FOR INJ (PEG) 1,000 MG/200 ML BAG IVPB SCH (17:46)
[2024-01-08] MEDS: oxyCODONE HCL 5 MG TABLET PO PRN (18:08)
[2024-01-08] MEDS: ACETAMINOPHEN 1000 MG/100 ML BAG IVPB PRN (21:17)
[2024-01-09 08:34] LABS: BASO % 0.2 % (0-2.0); EOS % 2.1 % (0-4.5); HEMATOCRIT 35.7 % (32.4-45.2); HEMOGLOBIN 11.9 GM/dL (10.7-15.3); LYMPH % 5.8 % (8-40); MCH 28.9 pg (25.7-33.7); MCHC 33.3 g/dl (32.0-36.0); MEAN CELL VOLUME 86.8 fl (80-96); MEAN PLT VOLUME 8.4 fl (7.5-11.1); NEUT % 84.9 % (42.8-82.8); PLATELET COUNT 281 10^3/uL (134-434); RBC 4.11 M/mm3 (3.60-5.2); RDW 14.1 % (11.6-15.6); WHITE BLOOD COUNT 7.9 K/mm3 (4.0-10.0)
[2024-01-09 09:05] LABS: POTASSIUM 4.1 mmol/L (3.5-5.1)
[2024-01-09 09:14] LABS: BLOOD UREA NITROGEN 20.9 mg/dL (7-18); CALCIUM 8.4 mg/dL (8.5-10.1)
[2024-01-09 09:17] LABS: CREATININE 0.9 mg/dL (0.55-1.3)
[2024-01-09] MEDS: CLINDAMYCIN 600MG PREMIX IVPB 600 MG/50 ML BAG IVPB SCH (17:09)
[2024-01-09] MEDS: ACETAMINOPHEN 1000 MG/100 ML BAG IVPB ONE (20:15)
[2024-01-10] MEDS: ACETAMINOPHEN 1000 MG/100 ML BAG IVPB PRN (10:52)
[2024-01-11 08:52] LABS: HEMOGLOBIN 12.5 GM/dL (10.7-15.3); MCH 29.2 pg (25.7-33.7); MCHC 33.7 g/dl (32.0-36.0); MEAN CELL VOLUME 86.7 fl (80-96); MEAN PLT VOLUME 8.6 fl (7.5-11.1); PLATELET COUNT 322 10^3/uL (134-434); RBC 4.27 M/mm3 (3.60-5.2); RDW 14.2 % (11.6-15.6); WHITE BLOOD COUNT 7.2 K/mm3 (4.0-10.0)
[2024-01-11 09:51] LABS: POTASSIUM 4.4 mmol/L (3.5-5.1)
[2024-01-11 10:04] LABS: ALBUMIN 2.9 g/dl (3.4-5.0); BLOOD UREA NITROGEN 18.9 mg/dL (7-18)
[2024-01-11 10:07] LABS: CREATININE 0.9 mg/dL (0.55-1.3)
[2024-01-11 10:08] LABS: BILIRUBIN,TOTAL 0.8 mg/dL (0.2-1); TOT PROT 7.4 g/dl (6.4-8.2)
[2024-01-11] MEDS ORDERED: DOCUSATE SODIUM 100 MG CAPSULE (FP) PO PRN (11:35)
[2024-01-11] MEDS: POLYETHYLENE GLYCOL (HEALTHYLAX) 3350 17 GM PACKET PO SCH (12:04)
[2024-01-11] MEDS: ACETAMINOPHEN 1000 MG/100 ML BAG IVPB PRN (19:09)
[2024-01-12 09:59] LABS: HEMOGLOBIN 11.6 GM/dL (10.7-15.3); MCH 28.9 pg (25.7-33.7); MCHC 33.3 g/dl (32.0-36.0); MEAN CELL VOLUME 86.9 fl (80-96); MEAN PLT VOLUME 8.1 fl (7.5-11.1); PLATELET COUNT 419 10^3/uL (134-434); RBC 4.02 M/mm3 (3.60-5.2); RDW 14.2 % (11.6-15.6); WHITE BLOOD COUNT 7.6 K/mm3 (4.0-10.0)
[2024-01-12 10:22] LABS: POTASSIUM 4.5 mmol/L (3.5-5.1)
[2024-01-12 10:30] LABS: BLOOD UREA NITROGEN 20.4 mg/dL (7-18)
[2024-01-12 10:32] LABS: BILIRUBIN,TOTAL 0.7 mg/dL (0.2-1); CALCIUM 9.1 mg/dL (8.5-10.1); TOT PROT 7.7 g/dl (6.4-8.2)
[2024-01-12 10:33] LABS: MAGNESIUM 2.1 mg/dL (1.8-2.4)
[2024-01-12] MEDS: HYDROCORTISONE 1% TOPICAL CREAM 30 GM TUBE TP PRN (10:59)
[2024-01-12] MEDS: diphenhydrAMINE HCL 25 MG CAPSULE (FP) PO PRN (10:59)
[2024-01-12 12:16] LABS: ANISOCYTOSIS 0; MACROCYTOSIS 0
[2024-01-12 12:59] LABS: URIC ACID 5.2 mg/dL (2.6-7.2)
[2024-01-12] MEDS: oxyCODONE HCL 5 MG TABLET PO ONE (17:33)
[2024-01-12] MEDS: KETOROLAC TROMETHAMINE 15 MG/ML VIAL IM ONE (17:34)
[2024-01-12] MEDS: oxyCODONE HCL 5 MG TABLET PO PRN (22:50)
[2024-01-13 09:24] LABS: HEMATOCRIT 36.2 % (32.4-45.2); HEMOGLOBIN 12.1 GM/dL (10.7-15.3); MCH 29.2 pg (25.7-33.7); MCHC 33.5 g/dl (32.0-36.0); MEAN CELL VOLUME 87.2 fl (80-96); MEAN PLT VOLUME 8.1 fl (7.5-11.1); PLATELET COUNT 409 10^3/uL (134-434); RBC 4.15 M/mm3 (3.60-5.2); RDW 14.3 % (11.6-15.6); WHITE BLOOD COUNT 6.2 K/mm3 (4.0-10.0)
[2024-01-13 09:32] LABS: POTASSIUM 4.6 mmol/L (3.5-5.1)
[2024-01-13 09:36] LABS: BLOOD UREA NITROGEN 22.8 mg/dL (7-18); CALCIUM 9.3 mg/dL (8.5-10.1); MAGNESIUM 2.1 mg/dL (1.8-2.4)
[2024-01-13 09:38] LABS: CREATININE 1.1 mg/dL (0.55-1.3)
[2024-01-13 09:41] LABS: BILIRUBIN,TOTAL 0.8 mg/dL (0.2-1); TOT PROT 7.8 g/dl (6.4-8.2)
[2024-01-13 10:00] LABS: ANISOCYTOSIS 3+; MACROCYTOSIS 0
[2024-01-13] MEDS: predniSONE 20 MG TABLET (UD) PO SCH (19:55)
[2024-01-14 11:09] LABS: HEMATOCRIT 35.2 % (32.4-45.2); HEMOGLOBIN 11.9 GM/dL (10.7-15.3); MCH 29.1 pg (25.7-33.7); MCHC 33.7 g/dl (32.0-36.0); MEAN CELL VOLUME 86.4 fl (80-96); MEAN PLT VOLUME 7.8 fl (7.5-11.1); PLATELET COUNT 471 10^3/uL (134-434); RBC 4.08 M/mm3 (3.60-5.2); RDW 13.7 % (11.6-15.6); WHITE BLOOD COUNT 8.2 K/mm3 (4.0-10.0)
[2024-01-14 11:50] LABS: POTASSIUM 4.3 mmol/L (3.5-5.1)
[2024-01-14 11:55] LABS: CALCIUM 9.7 mg/dL (8.5-10.1)
[2024-01-14 11:56] LABS: BLOOD UREA NITROGEN 25.8 mg/dL (7-18); MAGNESIUM 2.1 mg/dL (1.8-2.4)
[2024-01-14 12:00] LABS: BILIRUBIN,TOTAL 0.7 mg/dL (0.2-1); TOT PROT 8.1 g/dl (6.4-8.2)
[2024-01-14 12:09] LABS: ANISOCYTOSIS 0; MACROCYTOSIS 0
[2024-01-15] MEDS ORDERED: BUPIVACAINE HCL/PF 0.5% (5MG/ML) 10 ML VIAL ONE (07:13)
[2024-01-15] MEDS ORDERED: MIDAZOLAM HCL 2 MG/2 ML SINGLE DOSE VIAL ONE (07:19)
[2024-01-15] MEDS ORDERED: LIDOCAINE HCL 1%, 10 MG/ML (20ML VIAL) ONE (07:25)
[2024-01-15] MEDS ORDERED: PROPOFOL 20 ML ONE (07:43)
[2024-01-15] MEDS ORDERED: LIDOCAINE HCL/PF 2% SDV 5ML VIAL ONE (07:44)
[2024-01-15] MEDS: BUPIVACAINE HCL/PF 0.5% (5 MG/ML) 30 ML VIAL IJ ONE (07:46)
[2024-01-15] MEDS: LIDOCAINE HCL 1%, 10 MG/ML (20ML VIAL) NR ONE (07:46)
[2024-01-15] MEDS ORDERED: ONDANSETRON 4 MG/2 ML VIAL ONE (08:02)
[2024-01-15] MEDS ORDERED: LACTATED RINGERS SOLUTION 1,000 ML IV SCH (08:30)
[2024-01-15] MEDS ORDERED: oxyCODONE HCL 5 MG TABLET PO PRN (08:34)
[2024-01-15] MEDS ORDERED: HYDROCORTISONE 1% TOPICAL CREAM 30 GM TUBE TP PRN (08:34)
[2024-01-15] MEDS ORDERED: DOCUSATE SODIUM 100 MG CAPSULE (FP) PO PRN (08:34)
[2024-01-15] MEDS ORDERED: diphenhydrAMINE HCL 25 MG CAPSULE (FP) PO PRN (08:34)
[2024-01-15] MEDS: POLYETHYLENE GLYCOL (HEALTHYLAX) 3350 17 GM PACKET PO SCH (09:39)
[2024-01-15] MEDS: ENOXAPARIN NA (PORCINE) 40 MG/0.4 ML DISP.SYRIN SQ SCH (09:39)
[2024-01-15] MEDS: predniSONE 20 MG TABLET (UD) PO SCH (09:39)
[2024-01-15 11:18] LABS: BASO % 0.8 % (0-2.0); EOS % 0.7 % (0-4.5); HEMATOCRIT 36.8 % (32.4-45.2); HEMOGLOBIN 11.9 GM/dL (10.7-15.3); MCHC 32.3 g/dl (32.0-36.0); MEAN CELL VOLUME 89.8 fl (80-96); MEAN PLT VOLUME 8.2 fl (7.5-11.1); MONO % 4.3 % (3.8-10.2); NEUT % 82.2 % (42.8-82.8); PLATELET COUNT 343 10^3/uL (134-434); RBC 4.09 M/mm3 (3.60-5.2); RDW 13.7 % (11.6-15.6); WHITE BLOOD COUNT 8.6 K/mm3 (4.0-10.0)
[2024-01-15 11:32] LABS: POTASSIUM 4.7 mmol/L (3.5-5.1)
[2024-01-15 11:37] LABS: BLOOD UREA NITROGEN 31.5 mg/dL (7-18); CALCIUM 9.9 mg/dL (8.5-10.1)
[2024-01-15 11:40] LABS: CREATININE 0.9 mg/dL (0.55-1.3)
[2024-01-15 11:43] LABS: BILIRUBIN,TOTAL 0.4 mg/dL (0.2-1); TOT PROT 7.6 g/dl (6.4-8.2)
[2024-01-16 10:31] LABS: HEMATOCRIT 36.4 % (32.4-45.2); HEMOGLOBIN 11.9 GM/dL (10.7-15.3); MCH 28.6 pg (25.7-33.7); MCHC 32.8 g/dl (32.0-36.0); MEAN CELL VOLUME 87.3 fl (80-96); PLATELET COUNT 523 10^3/uL (134-434); RBC 4.17 M/mm3 (3.60-5.2); RDW 13.9 % (11.6-15.6); WHITE BLOOD COUNT 10.4 K/mm3 (4.0-10.0)
[2024-01-16 11:02] LABS: POTASSIUM 4.3 mmol/L (3.5-5.1)
[2024-01-16 11:04] LABS: CALCIUM 9.8 mg/dL (8.5-10.1)
[2024-01-16 11:05] LABS: ALBUMIN 3.1 g/dl (3.4-5.0); MAGNESIUM 2.2 mg/dL (1.8-2.4)
[2024-01-16 11:09] LABS: BILIRUBIN,TOTAL 0.4 mg/dL (0.2-1); TOT PROT 7.8 g/dl (6.4-8.2)
[2024-01-16 22:52] VITALS: RESP 18
[2024-01-17 11:08] LABS: HEMATOCRIT 38.7 % (32.4-45.2); HEMOGLOBIN 12.4 GM/dL (10.7-15.3); MCH 28.6 pg (25.7-33.7); MCHC 32.1 g/dl (32.0-36.0); MEAN CELL VOLUME 89.1 fl (80-96); MEAN PLT VOLUME 8.3 fl (7.5-11.1); PLATELET COUNT 504 10^3/uL (134-434); RBC 4.34 M/mm3 (3.60-5.2); RDW 14.1 % (11.6-15.6); WHITE BLOOD COUNT 10.9 K/mm3 (4.0-10.0)
[2024-01-17 11:10] LABS: CALCIUM 9.6 mg/dL (8.5-10.1)
[2024-01-17 11:11] LABS: ALBUMIN 3.1 g/dl (3.4-5.0)
[2024-01-17 11:15] LABS: BILIRUBIN,TOTAL 0.4 mg/dL (0.2-1)
[2024-01-17 11:16] LABS: TOT PROT 7.7 g/dl (6.4-8.2)
[2024-01-17 13:40] LABS: ANISOCYTOSIS 0; HELMET CELLS 0; HOWELL-JOLLY BODIES 0; MACROCYTOSIS 0; OVALOCYTE 0; ROULEAU 0; SICKELED CELLS 0; TARGET CELLS 0; TEAR DROP CELLS 0; TOXIC GRANULATION 0
[2024-01-17 14:48] VITALS: BP 117/81; PULSE 93; TEMP 97.9
== END 2024-01-17 16:46 | disposition home or self-care (01) | DRG 581 ==
LOC: JERFT 09:41 → JER 09:41 → JERBED 12:52 → J8W 01-08 15:49 → OBSVTOIN 01-13 15:23
PROVIDERS: ADMIT Internal Medicine; ATTEND Nurse Practitioner Family
PROC: 0Q9Q0ZX Drainage of Right Toe Phalanx, Open Approach, Diagnostic (ICD-10-PCS; principal; 2024-01-15 07:30)
DX: L03.115 Cellulitis of right lower limb (principal); I73.9 Peripheral vascular disease, unspecified; K59.00 Constipation, unspecified; R21 Rash and other nonspecific skin eruption
CPT/HCPCS: 36415; 73630-TC-RT-FY; 73718-TC-RT; 80048; 80053; 83036; 83735; 84550; 85025; 85027; 85651; 86140; 87040; 87070; 87186; 87205; 88307-TC; 88311-TC; 93922; 93925-TC; 94010; 94760; 97116-GP; 97161-GP; 99285-25; G0378; J0131

== ENCOUNTER 2024-06-11 10:28 | Inpatient (IN) | payer OTHER ==
[2024-06-11 14:24] LABS: MCH 32.5 pg (25.7-33.7); MCHC 31.1 g/dl (32.0-36.0); MEAN CELL VOLUME 104.8 fl (80-96); MEAN PLT VOLUME 7.2 fl (7.5-11.1); PLATELET COUNT 577 10^3/uL (134-434); RBC 1.43 M/mm3 (3.60-5.2); RDW 20.1 % (11.6-15.6)
[2024-06-11 14:30] LABS: WHITE BLOOD COUNT 12.2 K/mm3 (4.0-10.0)
[2024-06-11 14:31] LABS: INR 1.25 (0.83-1.09); PROTHROMBIN TIME (PATIENT) 13.6 SEC (9.7-13.0)
[2024-06-11 14:34] LABS: ACTIVATED PTT 26.8 SECONDS (25.2-36.5)
[2024-06-11 14:39] LABS: HEMOGLOBIN 4.7 GM/dL (10.7-15.3)
[2024-06-11 14:58] LABS: ALBUMIN 3.6 g/dl (3.4-5.0); CALCIUM 9.2 mg/dL (8.5-10.1)
[2024-06-11 15:03] LABS: BILIRUBIN,TOTAL 2.8 mg/dL (0.2-1)
[2024-06-11 15:10] LABS: CREATININE 1.1 mg/dL (0.55-1.3)
[2024-06-11 15:52] LABS: ANISOCYTOSIS 0; MACROCYTOSIS 0
[2024-06-11] MEDS: PANTOPRAZOLE SODIUM 80 MG in SODIUM CHLORIDE 100 ML IVPB SCH (18:30)
[2024-06-11] MEDS ORDERED: PANTOPRAZOLE SODIUM 40 MG VIAL ONE (22:23)
[2024-06-11] MEDS: PANTOPRAZOLE SODIUM 40 MG VIAL IVPUSH SCH (22:29)
[2024-06-12] MEDS ORDERED: predniSONE 20 MG TABLET (UD) ONE (00:57)
[2024-06-12] MEDS ORDERED: FOLIC ACID 1 MG TABLET (FP) ONE ×2 (00:58→09:07)
[2024-06-12] MEDS: predniSONE 20 MG TABLET (UD) PO ONE (01:01)
[2024-06-12] MEDS: FOLIC ACID 1 MG TABLET (FP) PO SCH (01:01)
[2024-06-12] MEDS: ACETAMINOPHEN 325 MG TABLET (FP) PO ONE (02:40)
[2024-06-12 07:17] LABS: HEMATOCRIT 18.4 % (32.4-45.2); MCH 33.5 pg (25.7-33.7); MCHC 33.6 g/dl (32.0-36.0); MEAN CELL VOLUME 99.6 fl (80-96); MEAN PLT VOLUME 7.9 fl (7.5-11.1); PLATELET COUNT 463 10^3/uL (134-434); RBC 1.85 M/mm3 (3.60-5.2); RDW 19.7 % (11.6-15.6)
[2024-06-12 07:28] LABS: WHITE BLOOD COUNT 12.4 K/mm3 (4.0-10.0)
[2024-06-12 07:41] LABS: HEMOGLOBIN 6.2 GM/dL (10.7-15.3)
[2024-06-12 07:43] LABS: POTASSIUM 4.5 mmol/L (3.5-5.1)
[2024-06-12 07:59] LABS: CALCIUM 8.6 mg/dL (8.5-10.1)
[2024-06-12 08:00] LABS: ALBUMIN 2.9 g/dl (3.4-5.0); BLOOD UREA NITROGEN 22.8 mg/dL (7-18); MAGNESIUM 1.8 mg/dL (1.8-2.4)
[2024-06-12 08:02] LABS: CREATININE 1.1 mg/dL (0.55-1.3)
[2024-06-12 08:03] LABS: PHOSPHOROUS 3.7 mg/dL (2.5-4.9)
[2024-06-12 08:04] LABS: BILIRUBIN,TOTAL 2.4 mg/dL (0.2-1); TOT PROT 6.8 g/dl (6.4-8.2)
[2024-06-12] MEDS ORDERED: ACETAMINOPHEN 325 MG TABLET (FP) PO PRN (08:14)
[2024-06-12] MEDS ORDERED: PANTOPRAZOLE SODIUM 40 MG VIAL ONE ×2 (09:08→22:47)
[2024-06-12 09:32] LABS: ANISOCYTOSIS 0; MACROCYTOSIS 0
[2024-06-12 11:37] LABS: RETICULOCYTES 16.41 % (0.5-1.5)
[2024-06-13 01:37] VITALS: BMI 26.8
[2024-06-13 07:30] LABS: MCH 32.2 pg (25.7-33.7); MEAN CELL VOLUME 94.7 fl (80-96); MEAN PLT VOLUME 7.6 fl (7.5-11.1); PLATELET COUNT 524 10^3/uL (134-434); WHITE BLOOD COUNT 10.7 K/mm3 (4.0-10.0)
[2024-06-13 07:36] LABS: HEMOGLOBIN 6.1 GM/dL (10.7-15.3)
[2024-06-13] MEDS: IBUPROFEN 600 MG TABLET (FP) PO ONE (08:01)
[2024-06-13 09:24] LABS: ANISOCYTOSIS 0; MACROCYTOSIS 0
[2024-06-13] MEDS: ACETAMINOPHEN 325 MG TABLET (FP) PO PRN (09:41)
[2024-06-13] MEDS: FUROSEMIDE 40 MG/4 ML INJECTABLE VIAL IVPUSH ONE (12:37)
[2024-06-13] MEDS: predniSONE 20 MG TABLET (UD) PO SCH (14:20)
[2024-06-13 17:43] LABS: BLOOD UREA NITROGEN 22.3 mg/dL (7-18); CALCIUM 8.4 mg/dL (8.5-10.1)
[2024-06-13 17:44] LABS: CREATININE 1.1 mg/dL (0.55-1.3)
[2024-06-13 17:46] LABS: BILIRUBIN,TOTAL 2.3 mg/dL (0.2-1); POTASSIUM 3.8 mmol/L (3.5-5.1); TOT PROT 7.1 g/dl (6.4-8.2)
[2024-06-14 08:06] LABS: HEMATOCRIT 24.5 % (32.4-45.2); HEMOGLOBIN 8.5 GM/dL (10.7-15.3); MCH 31.4 pg (25.7-33.7); MCHC 34.6 g/dl (32.0-36.0); MEAN CELL VOLUME 90.8 fl (80-96); MEAN PLT VOLUME 7.4 fl (7.5-11.1); PLATELET COUNT 538 10^3/uL (134-434); WHITE BLOOD COUNT 7.2 K/mm3 (4.0-10.0)
[2024-06-14 08:13] LABS: POTASSIUM 4.3 mmol/L (3.5-5.1)
[2024-06-14 08:19] LABS: CALCIUM 8.1 mg/dL (8.5-10.1)
[2024-06-14 08:20] LABS: ALBUMIN 2.8 g/dl (3.4-5.0); MAGNESIUM 2.2 mg/dL (1.8-2.4)
[2024-06-14 08:24] LABS: BILIRUBIN,TOTAL 1.7 mg/dL (0.2-1)
[2024-06-14 08:51] LABS: TOT PROT 6.6 g/dl (6.4-8.2)
[2024-06-14 12:19] LABS: ANISOCYTOSIS 1+; MACROCYTOSIS 0
[2024-06-14] MEDS ORDERED: IOHEXOL (OMNIPAQUE IV) 350 MG/ML - 100 ML BOTTLE PO SCH (20:15)
[2024-06-15 06:14] VITALS: RESP 18
[2024-06-15 07:45] LABS: BASO % 0.4 % (0-2.0); HEMATOCRIT 25.7 % (32.4-45.2); HEMOGLOBIN 8.4 GM/dL (10.7-15.3); LYMPH % 4.6 % (8-40); MCHC 32.7 g/dl (32.0-36.0); MEAN CELL VOLUME 91.9 fl (80-96); MEAN PLT VOLUME 7.4 fl (7.5-11.1); MONO % 6.5 % (3.8-10.2); NEUT % 88.5 % (42.8-82.8); PLATELET COUNT 521 10^3/uL (134-434); RDW 19.4 % (11.6-15.6); WHITE BLOOD COUNT 8.5 K/mm3 (4.0-10.0)
[2024-06-15 07:54] LABS: POTASSIUM 4.3 mmol/L (3.5-5.1)
[2024-06-15 08:10] LABS: CALCIUM 8.1 mg/dL (8.5-10.1)
[2024-06-15 08:11] LABS: ALBUMIN 2.8 g/dl (3.4-5.0); BLOOD UREA NITROGEN 25.1 mg/dL (7-18); MAGNESIUM 2.3 mg/dL (1.8-2.4)
[2024-06-15 08:13] LABS: BILIRUBIN,DIRECT 0.5 mg/dL (0.0-0.2)
[2024-06-15 08:14] LABS: PHOSPHOROUS 3.3 mg/dL (2.5-4.9)
[2024-06-15 08:15] LABS: BILIRUBIN,TOTAL 1.5 mg/dL (0.2-1); TOT PROT 6.5 g/dl (6.4-8.2)
[2024-06-15] MEDS: PANTOPRAZOLE 40 MG TABLET PO SCH (10:22)
[2024-06-15 15:07] LABS: PARV B19 IGG 3.7 index (0.0-0.8); PARV B19 IGM 0.1 index (0.0-0.8)
[2024-06-15 16:49] VITALS: BP 118/74; PULSE 80; TEMP 98.1
== END 2024-06-15 18:01 | disposition home or self-care (01) | DRG 809 ==
LOC: JER 10:28 → JERBED 15:45 → OBSVTOIN 16:17 → J4W 06-13 01:28
PROVIDERS: ATTEND Internal Medicine
PROC: 30233N1 Transfusion of Nonautologous Red Blood Cells into Peripheral Vein, Percutaneous Approach (ICD-10-PCS; principal; 2024-06-11)
DX: D59.11 Warm autoimmune hemolytic anemia (principal); R17 Unspecified jaundice; D53.9 Nutritional anemia, unspecified; I73.9 Peripheral vascular disease, unspecified; D75.839 Thrombocytosis, unspecified; M06.80 Other specified rheumatoid arthritis, unspecified site; M81.0 Age-related osteoporosis without current pathological fracture; M21.371 Foot drop, right foot
CPT/HCPCS: 0241U-QW; 36415; 36430; 71045-TC-FY; 71260-TC; 74177-TC; 76705-TC; 80053; 80076; 82248; 82272; 82607; 82728; 82746; 82962; 83010; 83540; 83550; 83615; 83735; 84100; 85025; 85027; 85045; 85610; 85730; 86157; 86704; 86708; 86747; 86803; 86880; 86922; 87340; 87517; 87799; 93005; 93010; 93971-TC; 99285-25; G0378; P9058; Q9967